=== PATIENT | female | born 1945 | race Hispanic/Latino ===

== ENCOUNTER 2018-06-22 11:30 | Inpatient (IN) | payer MEDICARE ==
[~2018-06-22] VITALS: Ht 147.3 cm; Wt 89.4 kg
--- OUTSIDE RECORDS SUMMARY | 2018-06-22 11:32 | XMS REPORT ---
Author Author 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 Allergies, Adverse Reactions, Alerts Allergy Name Allergy Type Status Severity Reaction(s) Onset Date Inactive Date Treating Clinician Comments No Known Allergies DA Active U 2015-05-16 00:00:00 Medications This patient has no known medications.
[2018-06-22 12:25] LABS: BASOPHILS # (AUTO) 0.1 (0.0-0.1); BASOPHILS % 0.9 % (0.0-1.0); EOSINOPHILS # (AUTO) 0.3 (0.0-0.4); EOSINOPHILS % 3.5 % (0.0-6.0); HEMATOCRIT 24.8 % (34.2-44.1); LYMPHOCYTES % 32.8 % (18.0-39.1); MEAN CORPUSCULAR HEMOGLOBIN 36.3 pg (28-32); MEAN CORPUSCULAR HGB CONC 32.7 g/dL (31-35); MEAN CORPUSCULAR VOLUME 111.2 fL (81-99); MONOCYTES # (AUTO) 0.9 (0.2-0.8); NEUTROPHILS # (AUTO) 4.8 (2.1-6.9); PLATELET COUNT 82 x10e3/uL (140-360); RED BLOOD COUNT 2.23 x10e6/uL (3.6-5.1); RED CELL DISTRIBUTION WIDTH 22.2 % (11.7-14.4)
[2018-06-22 12:26] LABS: INR 1.65; PROTHROMBIN TIME 20.9 seconds (11.9-14.5)
[2018-06-22 12:29] LABS: HEMOGLOBIN 8.1 g/dL (12.0-16.0)
[2018-06-22 12:35] LABS: ALANINE AMINOTRANSFERASE 25 IU/L (0-55); ALBUMIN 2.3 g/dL (3.5-5.0); ALBUMIN/GLOBULIN RATIO 0.5 (0.8-2.0); ALKALINE PHOSPHATASE 126 IU/L (40-150); ANION GAP 13.4 mmol/L (8-16); BLOOD UREA NITROGEN 8 mg/dL (7-26); BUN/CREATININE RATIO 12 (6-25); CALCIUM 8.3 mg/dL (8.4-10.2); CARBON DIOXIDE 24 mmol/L (22-29); CHLORIDE 99 mmol/L (98-107); CREATINE KINASE 124 IU/L (29-168); CREATININE, SERUM 0.65 mg/dL (0.57-1.11); EST GLOMERULAR FILTRATION RATE > 60 ML/MIN (60-); GLUCOSE 123 mg/dL (74-118); POTASSIUM 3.4 mmol/L (3.5-5.1); SODIUM 133 mmol/L (136-145)
--- NOTE | 2018-06-22 16:22 | NUR ---
PATIENT TRANSPORTED TO ER ROOM 9 VIA WHEELCHAIR, ASSUMED CARE AT THIS TIME. DISROBED AND GOWNED, CONNECTED TO BEDSIDE MONITOR. NO SIGNS OF ACUTE DISTRESS NOTED AT THIS TIME.
[2018-06-22] MEDS ORDERED: ASPIRIN 81 MG CHEW TAB PO ONE (17:30)
--- NOTE | 2018-06-22 18:45 | NUR ---
verbal report given to lavern perry.
--- NOTE | 2018-06-22 18:47 | Diagnostic Imaging Report ---
EXAMINATION: CHEST SINGLE (PORTABLE) COMPARISON: None INDICATION: Shortness of breath DISCUSSION: Frontal view of the chest obtained at 1814 hours. HEART AND MEDIASTINUM: The heart is enlarged. The aorta is ectatic with calcifications in the arch. LINES: None. LUNGS: Pulmonary vasculature is prominent. There are widespread alveolar airspace opacities in the lower lung zones. Pulmonary interstitium is mildly prominent. PLEURA: Moderate pleural effusions are suspected. No pneumothorax. BONES AND SOFT TISSUES: No focal osseous lesion. The soft tissues are normal. IMPRESSION: 1. Cardiomegaly and vascular congestion with interstitial edema. Bibasilar airspace opacities may represent atelectasis or infiltrate. 2. Moderate pleural effusions. Signed by: Dr. Megan Flowers MD on 06/22/2018 6:43 PM
--- NOTE | 2018-06-22 18:52 | Diagnostic Imaging Report ---
CT chest pulmonary embolism protocol CPT code: 07288 INDICATION: Shortness of breath, surgery 3 weeks ago TECHNIQUE: Thin collimation axial images obtained through the level of the pulmonary arteries with additional imaging through the chest following the uneventful administration of 100 cc of low osmolar, nonionic intravenous contrast. Images reconstructed into coronal and sagittal MIPs for complete evaluation of the tortuous and overlapping pulmonary vascular structures and to reduce patient radiation dose. RADIATION DOSE: Total DLP: 542.1 mGy*cm Estimated effective dose: (DLP x 0.015 x size factor) mSv CTDIvol has been reviewed. It is below the limits set by the Radiation Protocol Committee (RPC). COMPARISON: Chest x-ray obtained at the same time. FINDINGS: Pulmonary artery: No filling defects are appreciated within the main, left, right, lobar or visualized segmental pulmonary arteries to suggest embolism. The main pulmonary artery measures 3.1 cm in diameter. Aorta: The thoracic aorta is not aneurysmal. No evidence for dissection. Lymph nodes: No enlarged axillary or supraclavicular lymph nodes. No enlarged mediastinal lymph nodes. The hilar lymphoid tissue is prominent without measurable lymph nodes.. Thyroid: Normal in size without mass in the visualized parenchyma.. Mediastinum: The heart is enlarged. No pericardial effusion. There are calcifications of the mitral and aortic valves. Moderate burden of coronary artery atherosclerosis. There are calcifications throughout the tracheobronchial tree with mild tracheobronchomalacia. The esophagus is collapsed. Lungs: Right Lung: Diffuse interlobular septal thickening. There is subsegmental atelectasis in the lingula and near complete atelectasis of the lower lobe.. Left Lung: Diffuse interlobular septal thickening. There is subsegmental atelectasis of the upper lobe and lingula and near complete atelectasis of the lower lobe. Pleura: Posterior layering right pleural effusion measures 5.5 cm. Posterior layering left pleural effusion measures 3.5 cm. No enhancement of the visceral or parietal pleura. No pneumothorax. Abdomen: TIPS is partially imaged. Timing of the contrast bolus cannot assess shunt patency. There are visualization course along the course of the splenic artery. The liver is cirrhotic in morphology. No mass in the visualized portions of the upper abdomen. Bones: Degenerative changes of the spine. No compression deformities. No focal osseous lesions.. IMPRESSION: 1. No evidence of pulmonary embolus or aortic dissection. Enlarged pulmonary artery consistent with pulmonary artery hypertension. 2. Cardiomegaly and pulmonary vascular congestion with large pleural effusions and bilateral atelectasis. Mild tracheobronchomalacia suggestive of underlying small airways disease. 3. Cirrhosis with TIPS. Splenic artery embolization coils. Signed by: Dr. Megan Flowers MD on 06/22/2018 6:49 PM
[2018-06-22 19:01] LABS: EOSINOPHILS % (MANUAL) 3 % (0-7); HYPOCHROMASIA MODERATE; LYMPHOCYTES % (MANUAL) 24 % (19-48); MONOCYTES % (MANUAL) 16 % (3.4-9.0); NEUTROPHILS % (MANUAL) 51 % (40-74); PLATELET ESTIMATE MODERATELY DECREASED; PLATELET MORPHOLOGY COMMENT NORMAL; RBC MORPHOLOGY COMMENT NORMAL
[2018-06-22] MEDS ORDERED: IOPAMIDOL 370 MG/ML 200 ML INFUS..BTL INJ ONE (20:06)
[2018-06-22] MEDS ORDERED: SODIUM CHLORIDE 0.9% 50ML 50 ML ONE (20:06)
[2018-06-22 20:52] LABS: CREATINE KINASE MB 3.7 ng/mL (0-5.0)
[2018-06-22] MEDS ORDERED: LASIX20 MG PO (23:09)
[2018-06-22] MEDS ORDERED: ULTRAM 50MG50 MG PO (23:09)
[2018-06-22] MEDS ORDERED: LACTULOSE20 GM/30 M PO (23:09)
[2018-06-22] MEDS ORDERED: SPIRONOLACTONE25 MG PO (23:09)
[2018-06-22] MEDS ORDERED: ATORVASTATIN CA20 MG PO (23:09)
[2018-06-22] MEDS ORDERED: MUPIROCIN22 GM TOP (23:09)
[2018-06-22] MEDS ORDERED: ASPIRIN CHEW81 MG PO (23:09)
[2018-06-22] MEDS ORDERED: ROBITUSSIN-COU237 ML PO (23:11)
--- NOTE | 2018-06-22 23:30 | NUR ---
contact information for family lawson soriano (son) [phone] stephenevangelina miller (daughter) [phone]
[2018-06-23 05:17] LABS: CHOL/HDL RATIO 5.6 (3.0-3.6)
[2018-06-23 05:23] LABS: CREATINE KINASE MB 3.1 ng/mL (0-5.0)
[2018-06-23 09:25] LABS: BASOPHILS # (AUTO) 0.1 (0.0-0.1); BASOPHILS % 1.1 % (0.0-1.0); EOSINOPHILS # (AUTO) 0.4 (0.0-0.4); EOSINOPHILS % 4.1 % (0.0-6.0); HEMOGLOBIN 8.4 g/dL (12.0-16.0); LYMPHOCYTES # (AUTO) 2.9 (1.0-3.2); LYMPHOCYTES % 30.9 % (18.0-39.1); MEAN CORPUSCULAR HEMOGLOBIN 36.5 pg (28-32); MEAN CORPUSCULAR HGB CONC 32.3 g/dL (31-35); MONOCYTES # (AUTO) 0.9 (0.2-0.8); MONOCYTES % 9.4 % (4.4-11.3); NEUTROPHILS # (AUTO) 5.1 (2.1-6.9); PLATELET COUNT 84 x10e3/uL (140-360); RED CELL DISTRIBUTION WIDTH 22.8 % (11.7-14.4)
[2018-06-23] MEDS ORDERED: TRAMADOL HCL 50 MG TAB PO PRN (09:30)
[2018-06-23] MEDS ORDERED: GUAIFENESIN/DEXTROMETHORPHAN LIQD 5 ML UDC PO PRN (09:30)
[2018-06-23 10:23] LABS: % IRON SATURATION 45 % (15-50); IRON 79 ug/dL (50-170); TOTAL IRON BINDING CAPACITY 176 ug/dL (261-478); TRANSFERRIN 126 mg/dL (180-382)
--- NOTE | 2018-06-23 10:42 | History and Physical ---
PCP: Dr. Roselyn Ayers CHIEF COMPLAINT: Increasing shortness of breath, chest pain, pulmonary edema, and fluid overload. HISTORY: This is a very pleasant 73-year-old female recently admitted at [facility] on June 12, 2018. The patient apparently was [place] cruise ship. She had an emergency flight after she passed out and found that she had upper GI bleed with esophageal bleed profoundly with blood transfusion, and subsequently she was found have liver cirrhosis. Splenic artery embolization was done with a coiling, and then she had TIPS done. Found out that she had pulmonary hypertension and cardiomegaly with congestive heart failure. CT scan here showed that she had bilateral pleural effusion. The patient is admitted for further treatment. She is diagnosed with liver cirrhosis secondary to remote history of alcohol consumption. She is also an ex-smoker. PAST MEDICAL HISTORY: Recently in [facility] hospitalized from June 12, 2018, through June 17, 2018, for liver cirrhosis with upper GI bleed, status post esophageal varices banding with also 4 liver cirrhosis and TIPS procedures, necrotic navel removal, splenic artery embolization with coiling due to bleed. The patient was found have heart condition, questionable aortic stenosis, and she refused surgery as recommended at that time. She has chronic anemia and hypertension. PAST SURGICAL HISTORY: Including TIPS procedures, splenic artery embolization, esophageal varices banding, and abdominal hernia repair approximately 3 years ago. SOCIAL HISTORY: The patient quit alcohol years ago. She quit smoking also as well. She lives with her family with family support. ALLERGIES: NO KNOWN ALLERGIES. HOME MEDICATIONS: Aspirin, Lipitor, Lasix, lactulose, spironolactone, tramadol. REVIEW OF SYSTEMS: Increasing shortness of breath and generalized weakness. PHYSICAL EXAMINATION VITALS: Temperature is 98, blood pressure 110/54, pulse rate 88, respirations 22. GENERAL: The patient is not in acute distress. She is awake and alert laying in bed. HEENT: Normocephalic, atraumatic and anicteric. NECK: Supple grossly. PULMONARY: Bilateral coarses and rales at the bases with diminished breath sounds bilaterally. CARDIOVASCULAR: Regular rate and rhythm. ABDOMEN: Obese. Navel removal area with open wound. No sign of serious infection. Abdominal ascites. EXTREMITIES: One to 2+ edema. NEUROLOGIC: Moving all extremities. No focal deficit. LABORATORY: WBC is 9.1, hemoglobin 8.1, hematocrit 24.8 and platelets is 82,000. Sodium is 133, potassium 3.4, chloride 99, bicarb 24, BUN is 8, creatinine 0.6, glucose is 123. AST 67, ALT 25, albumin is 2.3. Coagulation: INR is 1.65. Imaging showing CT of the chest showed that she has some cardiomegaly and pulmonary vascular congestion with large pleural effusion and bilateral atelectasis. Cirrhosis with TIPS. Splenic artery embolization coiling. Liver cirrhosis. IMPRESSION 1. Congestive heart failure, [id number]-[id number], most likely diastolic dysfunction, but will check echocardiogram. 2. Bilateral pleural effusion. 3. Liver cirrhosis, advanced: Status post TIPS and esophageal varices banding approximately 2 weeks ago in [place]. 4. Morbid obesity. 5. Chronic anemia and low platelets. 6. Coagulopathy secondary to liver cirrhosis. PLAN: IV Lasix. Home medications. Hold off on aspirin for now. Echocardiogram. Consultation Dr. Erick Warren and Dr. Ayaan Castro, the patient's judicial registrar and Dr. Pool Wu, the patient's micrographics services supervisor. Obtain echocardiogram. Resume lactulose. PT and OT. Will follow up on the patient later today or tomorrow. Job#: [id number] SHERLYN
[2018-06-23] MEDS: PANTOPRAZOLE 40 MG 10ML VIAL IV SCH (11:01)
[2018-06-23] MEDS: SPIRONOLACTONE 25 MG TAB PO SCH (11:01)
[2018-06-23] MEDS: LACTULOSE SYRUP 20 GM/30 ML UDC PO SCH (11:01)
[2018-06-23] MEDS: FUROSEMIDE INJ 10 MG/ML 4 ML VIAL IV SCH ×2 (11:01→21:51)
--- NOTE | 2018-06-23 11:05 | NUR ---
rec'd report from linda sparks
--- NOTE | 2018-06-23 11:05 | NUR ---
Pt is in no distress. No complaints at this time. Family at the bedsidemeds given per orders. Pt is on the BSC. Will get a urine when finished. VSS. The patient is AA&Ox4, will monitor. Verbal report to Evan Mallory RN.
--- NOTE | 2018-06-23 14:45 | Consultation ---
DATE OF CONSULTATION: June 23, 2018 CARDIOLOGY CONSULTATION REASON FOR CONSULTATION: Volume overload, pleural effusion, and murmur. HISTORY OF PRESENT ILLNESS: Ms. Edna Gatse is a 73-year-old lady with past medical history of [id number]-[id number] aortic stenosis, who was under observation, very minimal coronary artery disease on last heart catheterization on February 2015 and severe alcoholic cirrhosis diagnosed many, many years ago who presented to [facility] on June 12, 2018 with hemorrhagic shock after having esophageal bleeding varices secondary to liver cirrhosis. She underwent emergent banding along with splenic artery embolization and an emergent TIPS procedure. According to the family, patient went in for her procedure at 7 in the morning, was then told that she had , somehow miracles so she came back, then had the procedure completed and finally left the procedure room around 11 o'clock at night. The patient was finally discharged on June 17, 2018 after a prolonged hospital course and receiving multiple units of blood. She reports that she was discharged on a statin therapy which was unclear why was given and in addition was started on lactulose therapy as well as Lasix and Aldactone therapy for volume management. She reports that at home she had been progressively increasingly short of breath and once she saw her PCP yesterday was noted to be hypoxic and hence coming into the hospital. At the present time, she denies any chest pain or discomfort. She reports new onset 2 to 3 pillow orthopnea, worsening lower extremity edema. I had a long discussion with the patient and family at bedside who does not seem to understand the advance nature of her liver condition. We had a very long visit today gone over all her overall medical condition. PAST MEDICAL HISTORY 1. Aortic stenosis, [id number] on last echocardiogram in 2016 with mean peak gradient of 33/59 mmHg. Claimed she was asymptomatic at that time and is under observation. 2. History of cardiac catheterization on February 2015, which showed only mild CAD. 3. Alcoholic cirrhosis, diagnosed many years ago with hospital course as noted above. 4. COPD, former heavy smoker. 5. DJD. PAST SURGICAL HISTORY 1. History of surgery x4. 2. History of abdominal hernia repair in 2007. 3. History of left knee arthroscopic procedure. 4. Prior history of esophageal banding and TIPS as noted above. FAMILY HISTORY: Mother at 78, had diabetes. Father at 82, had kidney stones. SOCIAL HISTORY: She denies any alcohol use, but used to drink heavily in the past. She reports remote history of smoking and denies any illicit drug use. ALLERGIES: NO KNOWN DRUG ALLERGIES. CURRENT MEDICATIONS: Patient was taking aspirin 81 mg daily, atorvastatin 40 mg q.h.s., lactulose b.i.d., spironolactone 50 mg daily, Lasix 40 mg p.o. daily. REVIEW OF SYSTEMS GENERAL: Positive for fatigue, malaise, weight gain. HEENT: No headaches, visual complains, sore throat, stuffy nose. RESPIRATORY: Denies any pleuritic chest pain. Has exertional dyspnea and orthopnea as noted above. CARDIOVASCULAR: As per HPI. GI: Denies any current vomiting. Does have intermittent nausea. Denies any bright red blood per rectum. HEMATOLOGY: Positive for easy bruising and bleeding. : Positive for hematuria according to the patient and increased urinary frequency. MUSCULOSKELETAL: Positive for back pain, knee pains, and leg swelling. SKIN: No rashes. NEUROLOGIC: Fair coordination and speech. No weakness. No history TIA or stroke. Remainder of review of system is negative otherwise as mentioned. PHYSICAL EXAMINATION VITAL SIGNS: Height of 5 feet 8 inches, weight of 228 pounds, BMI is 47.7, temperature of 98.9, pulse of 91, respiratory rate 19, blood pressure 97/57, O2 sat 100% on 2 liters nasal cannula. GENERAL: This is a well-nourished, well-developed lady, who is currently lying in bed, in no distress. HEENT: Normocephalic, atraumatic. Pupils are equal, round and reactive to light. Extraocular movements are intact. Oropharynx is clear. Sclerae appears jaundiced. NECK: Positive for JVD to the angle of mandible. CARDIOVASCULAR: Regular rate and rhythm. Normal S1 and S2. A 3 to 4/6 systolic ejection murmur at the right upper sternal border with radiation to the carotids. ABDOMEN: Soft, protuberant, distended. Normoactive bowel sounds. No hepatosplenomegaly. There is old surgical scars. BACK: No costovertebral angle tenderness. EXTREMITIES: Warm with 2+ edema to the mid shins. LUNGS: Show diminished bibasilar breast sounds prison of the lung alva and diminished air entry compatible with COPD type changes. NEUROLOGIC: Cranial nerves II through XII are intact. Strength is 5/5 and grossly nonfocal. PSYCHIATRIC: Normal fluent speech. Appropriate affect. No anxiety or delusion. LABORATORY DATA: White count of 9.45, hemoglobin 8.4, hematocrit 26.0, platelets of 84, MCV is 113. Sodium 133, potassium 3.4, chloride 99, bicarb 24, BUN 8, creatinine 0.65, glucose of 123. AST 67, ALT 25, alk phos 126, total bili 10.0, total protein 6.5, albumin of 2.3, total cholesterol 45, HDL of 8, LDL of 25, triglycerides of 59. Troponin went from 0.087 to 0.103 to 0.130. INR is 1.65. Chest x-ray showing vascular congestion and bilateral pleural effusions. moderate in size. CT of the chest shows large pleural effusions, cardiomegaly, vascular congestion, and cirrhosis with TIPS changes and splenic arterial embolization. EKG revealed sinus rhythm and non-specific ST-T wave changes. DIAGNOSES 1. Acute decompensated diastolic heart failure/high output heart failure secondary to transjugular intrahepatic portosystemic shunt procedure and also in the setting of rhnjoqgw-zw-cyjxjj aortic stenosis. 2. Large bilateral pleural effusions evident on exam with hypoxic respiratory failure. 3. Advance end-stage liver cirrhosis, status post transjugular intrahepatic portosystemic shunt, esophageal variceal banding now with bilirubin of 10, INR of 1.65, and albumin of 2.3 showing sings of advance poor hepatic synthetic function. 4. Thrombocytopenia, portal hypertension. 5. Anemia. 6. Hematuria. 7. Morbid obesity. 8. Chronic obstructive pulmonary disease, former smoker. 9. Mild coronary artery disease. PLANS/RECOMMENDATIONS: 1. From a cardiovascular standpoint, patient's decompensation and volume status and overall well-being is largely resultant for advanced liver cirrhosis and now is in a high output heart failure state secondary to her TIPS procedure performed 2 weeks ago. 2. We had a long discussion in terms of how advanced her situation is to her son with very high expected mortality in the short-term with the only real solution is again of the liver transplantation and suspect is not a good candidate for that. 3. We will check echocardiogram to evaluate the status of her aortic stenosis. 4. We will agree with IV diuretic therapy; however, patient is at very high risk for developing hepatorenal syndrome and [facility]. She is in a very delicate state. 5. Recommend strict I's and O's, daily weights. 6. Resume lactulose therapy. 7. Do not advise for any statin therapy and told the family to explosively discontinue this and we have never given her statin in light of her advanced liver cirrhosis. 8. Advised her not to take any antiplatelet therapy in light of her bleeding and diaphysis ever again and stopped her aspirin. 9. We will continue to follow this patient with you. Thank you for this referral. Job#: [id number] BESSIE
[2018-06-23] MEDS: MUPIROCIN 2% OINT 22 GM TUBE TOP SCH ×2 (15:00→21:00)
[2018-06-23 15:05] VITALS: BP 113/66
[2018-06-23 15:30] VITALS: BP 113/66
[2018-06-23] MEDS ORDERED: PHYTONADIONE 10 MG/ML AMP SQ NR (16:45)
--- NOTE | 2018-06-23 17:01 | Consultation ---
DATE OF CONSULTATION: PULMONARY CONSULTATION Patient of Dr. Ayers, Dr. Castro, Dr. Howard. A charming but unfortunate 73-year-old woman with a history of recent TIPS placement for upper GI bleeding at [facility] at [place]. She was admitted from Dr. Ayers's office with progressive shortness of breath and anasarca. She has a history of cirrhosis, which she relates to alcohol in the past. History of smoking in the past. History of splenic artery embolization recently. She has had episodes of PND since her TIPS was placed. ALLERGIES: SHE HAS NO KNOWN ALLERGIES. MEDICATIONS: Include aspirin, Lipitor, Lasix, lactulose, Aldactone, and tramadol. She worked in [employer]. Born in [place], [place]. Grew up in [place]. Had 3 hernia repairs. FAMILY HISTORY: Noncontributory. PHYSICAL EXAMINATION GENERAL: She is a well-developed white female in no acute distress. Looking her stated age. VITALS: Temperature 96.8, pulse 95, respirations 18, blood pressure 113/66. HEENT: Head is normocephalic and atraumatic. Eyes: Extraocular movements intact. LUNGS: Diminished breath sounds in both bases. ABDOMEN: Obese. Has ascites. EXTREMITIES: Edematous. IMPRESSION 1. Cirrhosis with ascites. 2. Congestive heart failure with chronic systolic ejection murmur, which she says she has had from her youth. PLAN: Diuresis. Attempt to avoid hepatorenal syndrome. Consider thoracentesis. Also, add vitamin K to the regimen. Thank you for this kind referral. Job#: [id number] SHERLYN
[2018-06-23 20:00] VITALS: BP 110/56
[2018-06-24] VITALS: BP 109/55
--- NOTE | 2018-06-24 01:30 | Consultation ---
DATE OF CONSULTATION: June 24, 2018 GI CONSULT NOTE CONSULTING PHYSICIAN: Dr. He Howard REASON FOR CONSULT: 1. BARRIGA, liver cirrhosis. 2. Portal hypertensive gastropathy. 3. Esophageal varices, status post TIPS. HISTORY OF PRESENTING ILLNESS: Ahdqceq-las-ahrv-old female who is a patient of my associate, Dr. Castro. She has BARRIGA liver cirrhosis. She was recently admitted in [facility] earlier this month with GI bleeding. She received multiple units of packed red blood cell transfusion. She had splenic artery embolization. She also ended up getting TIPS. Apparently, patient was doing okay until she came to the emergency room yesterday with acute shortness of breath, found to have pulmonary edema, and worsening of congestive heart failure. She was also noted to have bilateral pleural effusions. She is being managed by cardiology service. GI is being consulted to assist in management of decompensated BARRIGA, liver cirrhosis. REVIEW OF SYSTEMS: Twelve-point system reviewed, symptomatology is limited as per HPI. PAST MEDICAL HISTORY: BARRIGA liver cirrhosis, obesity. PAST SURGICAL HISTORY: TIPS procedure, EGD with esophageal variceal banding, abdominal hernia repair. FAMILY HISTORY: Noncontributory. SOCIAL HISTORY: Used to drink when she was young, but did not drink any alcohol in last 20 to 30 years. Seldom drinks. Former smoker. Never used any illicit drugs. ALLERGIES: NO KNOWN DRUG ALLERGIES. HOME MEDICATIONS: Aspirin, Lipitor, Lasix, lactulose, spironolactone, and tramadol. PHYSICAL EXAMINATION: VITAL SIGNS: Temperature 97, pulse 93, respiration 20, blood pressure 110/56, oxygen saturation 96% on 3 liters of nasal cannula. GENERAL: Obese body habitus, not in any acute distress, mentating well. HEENT: Oral mucosa is moist. Anicteric sclerae. CVS: S1 and S2 regular. LUNGS: Bilaterally grossly clear with decreased breath sounds at both bases. ABDOMEN: Obese, soft, nondistended. No shifting dullness. Nontender. No palpable mass or hernia. Positive bowel sounds. EXTREMITIES: Warm. No leg edema. LABS: WBC 9.45, hemoglobin 8.4, hematocrit 26, platelet count 84,000. Sodium 133, potassium 3.4, chloride 99, bicarb 24, BUN 8, creatinine 0.65. Liver enzymes showed a total bilirubin 10, AST 67, ALT 25, alkaline phosphatase 126. CT of the chest showed: 1. No evidence of pulmonary embolus or any aortic dissection. Enlarged pulmonary artery consistent with pulmonary arterial hypertension. 2. Cardiomegaly and pulmonary vascular congestion with large pleural effusion and bilateral atelectasis. Mild tracheobronchomalacia suggestive of underlying small airway disease. 3. Cirrhosis with TIPS. Splenic artery embolization coil. Chest x-ray showed: 1. Cardiomegaly and vascular congestion with interstitial edema. Bibasilar airspace opacities may represent atelectasis or infiltrate. 2. Moderate pleural effusion. IMPRESSION: Decompensated nonalcoholic steatohepatitis, liver cirrhosis, status post transjugular intrahepatic portosystemic shunt. From cirrhosis standpoint, continue to maintain patient on low-salt diet. Lactulose to ensure 1 or 2 bowel movement daily. Patient is definitely at the risk of hepatic encephalopathy due to presence of transjugular intrahepatic portosystemic shunt. Outpatient management of liver cirrhosis once patient is discharged from the hospital. I thank Dr. Howard for allowing me to participate in the care of this patient. Job#: [id number] DR ENAMORADO
[2018-06-24 04:00] VITALS: BP 106/51
[2018-06-24 05:20] LABS: BASOPHILS # (AUTO) 0.1 (0.0-0.1); BASOPHILS % 1.1 % (0.0-1.0); EOSINOPHILS # (AUTO) 0.3 (0.0-0.4); EOSINOPHILS % 3.9 % (0.0-6.0); HEMOGLOBIN 7.7 g/dL (12.0-16.0); LYMPHOCYTES # (AUTO) 2.9 (1.0-3.2); LYMPHOCYTES % 35.5 % (18.0-39.1); MEAN CORPUSCULAR HEMOGLOBIN 35.8 pg (28-32); MEAN CORPUSCULAR HGB CONC 32.1 g/dL (31-35); MEAN CORPUSCULAR VOLUME 111.6 fL (81-99); MONOCYTES # (AUTO) 0.9 (0.2-0.8); MONOCYTES % 10.8 % (4.4-11.3); NEUTROPHILS % 48.5 % (38.7-80.0); PLATELET COUNT 75 x10e3/uL (140-360); RED BLOOD COUNT 2.15 x10e6/uL (3.6-5.1); RED CELL DISTRIBUTION WIDTH 22.4 % (11.7-14.4)
[2018-06-24 05:30] LABS: INR 1.62; PROTHROMBIN TIME 20.6 seconds (11.9-14.5)
[2018-06-24 05:44] LABS: ALANINE AMINOTRANSFERASE 22 IU/L (0-55); ALBUMIN 2.1 g/dL (3.5-5.0); ALBUMIN/GLOBULIN RATIO 0.5 (0.8-2.0); ALKALINE PHOSPHATASE 125 IU/L (40-150); ANION GAP 9.4 mmol/L (8-16); BLOOD UREA NITROGEN 6 mg/dL (7-26); BUN/CREATININE RATIO 9 (6-25); CARBON DIOXIDE 30 mmol/L (22-29); CHLORIDE 99 mmol/L (98-107); CREATININE, SERUM 0.69 mg/dL (0.57-1.11); EST GLOMERULAR FILTRATION RATE > 60 ML/MIN (60-); GLUCOSE 81 mg/dL (74-118); MAGNESIUM 1.4 MG/DL (1.3-2.1); POTASSIUM 3.4 mmol/L (3.5-5.1); SODIUM 135 mmol/L (136-145)
[2018-06-24 06:06] LABS: THYROID STIMULATING HORMONE 1.634 uIU/mL (0.350-4.940)
[2018-06-24 06:10] LABS: FOLATE 6.5 ng/mL (7.0-15.4)
[2018-06-24 08:00] VITALS: BP 115/57
[2018-06-24 09:12] LABS: HYPOCHROMASIA MODERATE; PLATELET ESTIMATE MODERATELY DECREASED; PLATELET MORPHOLOGY COMMENT FEW LARGE; POIKILOCYTOSIS SLIG; POLYCHROMASIA FEW; RBC MORPHOLOGY COMMENT NORMAL
[2018-06-24] MEDS: PANTOPRAZOLE 40 MG 10ML VIAL IV SCH (09:47)
[2018-06-24 09:50] VITALS: BP 115/57
[2018-06-24] MEDS: POTASSIUM CHLORIDE 20 MEQ TAB CR PO PRN ×2 (09:50→10:20)
[2018-06-24] MEDS ORDERED: FOLIC ACID 1 MG TAB PO ONE (11:00)
--- NOTE | 2018-06-24 11:50 | NUR ---
patient back from thoracentesis , incision site dressing is intact, no bleeding or drainage noted, denies any pain.
--- NOTE | 2018-06-24 12:11 | Diagnostic Imaging Report ---
PROCEDURE: ULTRASOUND GUIDED THORACENTESIS COMPARISON: [facility], DX, CHEST SINGLE (PORTABLE), 06/22/2018, 18:14. INDICATIONS:PLEURAL EFFUSION FINDINGS: After informed consent was obtained, the patient was placed in the sitting position and preliminary ultrasound of the posterior chest identified a safe route into the right pleural effusion. The overlying skin was prepped and draped in usual sterile fashion. Lidocaine 1% was used for local anesthesia. Under ultrasound guidance, a 5 Guatemalan centesis needle was advanced into the pleural fluid and 650 cc of krishan colored effusion were aspirated. The patient tolerated the procedure well and there were no immediate post-procedural complications. A post-thoracentesis chest radiograph will be obtained. Specimen was sent to the laboratory for analysis. CONCLUSION: Uncomplicated ultrasound-guided right thoracentesis with removal of 650 cc of fluid. Javier Gomez D.O. Dictated by: Javier Gomez D.O. on 06/24/2018 at 12:22 Electronically approved by: Javier Gomez D.O. on 06/24/2018 at 12:22
--- NOTE | 2018-06-24 12:44 | Diagnostic Imaging Report ---
Chest, single view portable dated 06/24/2018 at 12:10 PM History: Status post right thoracentesis Comparison: 06/22/2018 chest x-ray.. Discussion: The cardiomediastinal silhouette is enlarged. Improvement in the right pleural effusion with improved aeration in the base but persistent atelectasis. No pneumothorax is identified. Small-moderate left pleural effusion persists. The soft tissues and osseous structures are intact. IMPRESSION: 1. Improved aeration involving the right lung base; status post right thoracentesis. 2. No evidence of a pneumothorax. 3. Left pleural effusion persists. Signed by: Dr. Javier Gomez DO on 06/24/2018 12:40 PM
[2018-06-24 13:00] LABS: BODY FLUID APPEARANCE SL.CLOUDY; BODY FLUID COLOR YELLOW; BODY FLUID TYPE PLEURAL
[2018-06-24] MEDS: MUPIROCIN 2% OINT 22 GM TUBE TOP SCH ×3 (13:11→20:50)
[2018-06-24] MEDS: LACTULOSE SYRUP 20 GM/30 ML UDC PO SCH (13:12)
[2018-06-24] MEDS: FUROSEMIDE INJ 10 MG/ML 4 ML VIAL IV SCH ×2 (13:12→20:50)
[2018-06-24] MEDS: SPIRONOLACTONE 25 MG TAB PO SCH (13:12)
[2018-06-24 13:35] LABS: RBC,BODY FLUID 8353 cells/uL; WBC,BODY FLUID 62 cells/uL
[2018-06-24 14:45] LABS: BASOPHILS # (AUTO) 0.1 (0.0-0.1); EOSINOPHILS # (AUTO) 0.3 (0.0-0.4); EOSINOPHILS % 3.3 % (0.0-6.0); HEMATOCRIT 27.9 % (34.2-44.1); LYMPHOCYTES # (AUTO) 2.7 (1.0-3.2); LYMPHOCYTES % 32.1 % (18.0-39.1); MEAN CORPUSCULAR HEMOGLOBIN 36.7 pg (28-32); MEAN CORPUSCULAR HGB CONC 32.3 g/dL (31-35); MEAN CORPUSCULAR VOLUME 113.9 fL (81-99); MONOCYTES # (AUTO) 0.9 (0.2-0.8); MONOCYTES % 10.5 % (4.4-11.3); NEUTROPHILS # (AUTO) 4.4 (2.1-6.9); NEUTROPHILS % 52.7 % (38.7-80.0); RED BLOOD COUNT 2.45 x10e6/uL (3.6-5.1); RED CELL DISTRIBUTION WIDTH 22.6 % (11.7-14.4)
[2018-06-24 14:47] LABS: PLATELET COUNT 79 x10e3/uL (140-360)
--- NOTE | 2018-06-24 15:04 | Progress Note ---
DATE: June 24, 2018 GASTROENTEROLOGY PROGRESS NOTE SUBJECTIVE: Patient reports no abdominal pain. She is eating and drinking fine. No bowel movement today. She has had a thoracentesis today. REVIEW OF SYSTEMS GENERAL: No fever or chills. RESPIRATORY: No cough or expectoration. CVS: No chest pain or palpitation. MEDICATIONS 1. Lasix 40 mg IV twice daily. 2. Spironolactone 50 mg p.o. daily. 3. Lactulose 20 g p.o. daily. 4. Mupirocin 22 g t.i.d. 5. Potassium chloride 20 mEq daily as needed. 6. Pantoprazole 40 mg IV daily. 7. Folic acid 1 mg daily. 8. Albuterol inhaler. 9. Tramadol. 10. Robitussin cough syrup. PHYSICAL EXAMINATION VITAL SIGNS: Temperature 97.9, pulse 91/94, respiration 18, blood pressure 115/57, oxygen saturation 95% on 3 L of nasal cannula. GENERAL: Not in any acute distress. Oral mucosa is moist. Obese body habitus. HEENT: Slightly icteric sclerae. ABDOMEN: Soft, obese, nondistended, and nontender. No palpable mass or hernia. No shifting dullness. No digitally appreciable shifting dullness. LABS: BUN 6, creatinine 0.69. Liver enzymes showed total bilirubin has come down to 7.6 from 10 yesterday. AST 59, ALT 22, alkaline phosphatase 125. WBC 8.23, hemoglobin 7.7, hematocrit 24, and platelet count 75,000. IMPRESSION 1. Decompensated nonalcoholic steatohepatitis liver cirrhosis, status post TIPS for esophageal varices. 2. Portal hypertension and portal hypertensive gastropathy. 3. Decompensated congestive heart failure and bilateral pleural effusion. PLAN: Continue lactulose to ensure 1 or 2 bowel movements daily. Patient has had TIPS. Therefore, she is at risk of getting portosystemic encephalopathy. Continue diuretics. Monitor electrolytes. Liver enzymes elevated secondary to underlying liver cirrhosis, total bilirubin is trending down. Job#: [id number]
[2018-06-24 16:00] VITALS: BP 97/54
--- NOTE | 2018-06-24 17:55 | NUR ---
patient stated , when she blow nose blood tinged mucus coming out, on assessment no active bleeding noted, will keep monitor for any other bleeding, patient had moderate BM
[2018-06-24 20:37] VITALS: BP 96/49
[2018-06-25] VITALS (9 sets, daily range): BP systolic 95–153; BP diastolic 45–63
[2018-06-25 06:54] LABS: BASOPHILS # (AUTO) 0.1 (0.0-0.1); BASOPHILS % 0.9 % (0.0-1.0); EOSINOPHILS # (AUTO) 0.3 (0.0-0.4); EOSINOPHILS % 3.8 % (0.0-6.0); HEMATOCRIT 24.8 % (34.2-44.1); LYMPHOCYTES # (AUTO) 3.4 (1.0-3.2); MEAN CORPUSCULAR HGB CONC 32.3 g/dL (31-35); MEAN CORPUSCULAR VOLUME 111.7 fL (81-99); MONOCYTES # (AUTO) 0.9 (0.2-0.8); MONOCYTES % 9.8 % (4.4-11.3); NEUTROPHILS % 46.3 % (38.7-80.0); PLATELET COUNT 81 x10e3/uL (140-360); RED BLOOD COUNT 2.22 x10e6/uL (3.6-5.1)
[2018-06-25 07:11] LABS: ANION GAP 13.4 mmol/L (8-16); BLOOD UREA NITROGEN 8 mg/dL (7-26); BUN/CREATININE RATIO 11 (6-25); CALCIUM 8.3 mg/dL (8.4-10.2); CARBON DIOXIDE 27 mmol/L (22-29); CHLORIDE 99 mmol/L (98-107); EST GLOMERULAR FILTRATION RATE > 60 ML/MIN (60-); GLUCOSE 78 mg/dL (74-118); POTASSIUM 3.4 mmol/L (3.5-5.1); SODIUM 136 mmol/L (136-145)
[2018-06-25 07:17] LABS: ANISOCYTOSIS SLIGHT; PLATELET ESTIMATE ADEQUATE; PLATELET MORPHOLOGY COMMENT NORMAL
--- NOTE | 2018-06-25 07:33 | NUR ---
PATIENT RESTING IN BED, NOT IN ANY DISTRESS, CALL LIGHT IN REACH, FAMILY AT BED SIDE
[2018-06-25] MEDS: FUROSEMIDE INJ 10 MG/ML 4 ML VIAL IV SCH ×2 (08:52→21:48)
[2018-06-25] MEDS: PANTOPRAZOLE 40 MG 10ML VIAL IV SCH (08:52)
[2018-06-25] MEDS: LACTULOSE SYRUP 20 GM/30 ML UDC PO SCH (08:52)
[2018-06-25] MEDS: SPIRONOLACTONE 25 MG TAB PO SCH (08:52)
[2018-06-25] MEDS: FOLIC ACID 1 MG TAB PO SCH (08:52)
[2018-06-25] MEDS: MUPIROCIN 2% OINT 22 GM TUBE TOP SCH ×3 (08:52→22:24)
[2018-06-25] MEDS ORDERED: PHYTONADIONE 10 MG/ML AMP SQ ONE (12:00)
[2018-06-25] MEDS ORDERED: FUROSEMIDE INJ 10 MG/ML 2 ML VIAL IV SCH (12:00)
[2018-06-25] MEDS ORDERED: SODIUM CHLORIDE 0.9% 250ML 250 ML IV ONE (12:00)
[2018-06-25] MEDS ORDERED: PHYTONADIONE 10MG/ML 10 MG in SODIUM CHLORIDE 0.9% 50ML 50 ML IV ONE (13:00)
--- NOTE | 2018-06-25 17:53 | NUR ---
patient in bed, denies any pain, no distress noted, Delay in Blood which is notified by lab Dr Howard aware about it, family at bed side
--- NOTE | 2018-06-25 19:20 | NUR ---
Received patient asleep, no distress noted, family members at the bedside. Call light within easy reached, advised to call for assistance when needed. Will continue to monitor
--- NOTE | 2018-06-25 19:30 | NUR ---
received call from lab to draw blood for further testing, patient has positive antibodies, with orders to transfuse 2 units PRBC, consent signed
--- NOTE | 2018-06-25 20:00 | NUR ---
Blood sent to lab, patient had previous transfusion this month June [place] per family member, Narcisa from Lab informed
--- NOTE | 2018-06-25 20:18 | Progress Note ---
DATE: June 25, 2018 SUBJECTIVE: Patient reports no abdominal pain. She has had several loose stools since yesterday. REVIEW OF SYSTEMS GENERAL: No fever or chills. RESPIRATORY: No cough or expectoration. CVS: No chest pain or palpitations. MEDICATIONS: Mupirocin, folic acid, furosemide, spironolactone, potassium chloride, lactulose 20 g daily, furosemide 40 mg IV q.12 hours, pantoprazole 40 mg daily, albuterol inhaler, tramadol. PHYSICAL EXAMINATION VITAL SIGNS: Temperature 98.1, pulse 86, respirations 20, blood pressure 104/53 to 153/61, oxygen saturation 97% on 3 liters of nasal cannula. GENERAL: Not in any acute distress, obese body habitus. HEENT: Oral mucosa is moist. ABDOMEN: Obese. No digitally appreciable shifting dullness, nontender. No palpable mass or hernia. Positive bowel sounds. LABS: WBC 8.71, hemoglobin 8, hematocrit 24.8, platelet count 81. Sodium 136, potassium 3.4, chloride 99, bicarbonate 27, BUN 8, creatinine 0.70, glucose 78. IMPRESSION 1. Decompensated nonalcoholic steatohepatitis liver cirrhosis with portal hypertension. 2. Esophageal varices. 3. History of upper gastrointestinal bleed, status post transjugular intrahepatic portosystemic shunt. PLAN: Continue present medical management. Titrate the dose of lactulose for 1 or 2 bowel movement daily. Hold the lactulose if there is a diarrhea. Patient needs stringent outpatient management of [place] liver cirrhosis. Job#: [id number] RTY
[2018-06-26] VITALS (7 sets, daily range): BP systolic 105–121; BP diastolic 51–60
--- NOTE | 2018-06-26 05:56 | NUR ---
Called lab to ff-up, no update yet at this time
[2018-06-26 06:46] LABS: BASOPHILS # (AUTO) 0.1 (0.0-0.1); BASOPHILS % 1.1 % (0.0-1.0); EOSINOPHILS # (AUTO) 0.4 (0.0-0.4); HEMATOCRIT 30.6 % (34.2-44.1); HEMOGLOBIN 9.7 g/dL (12.0-16.0); LYMPHOCYTES # (AUTO) 3.5 (1.0-3.2); LYMPHOCYTES % 39.3 % (18.0-39.1); MEAN CORPUSCULAR HEMOGLOBIN 35.5 pg (28-32); MEAN CORPUSCULAR HGB CONC 31.7 g/dL (31-35); MEAN CORPUSCULAR VOLUME 112.1 fL (81-99); MONOCYTES # (AUTO) 0.7 (0.2-0.8); NEUTROPHILS # (AUTO) 4.2 (2.1-6.9); NEUTROPHILS % 47.2 % (38.7-80.0); PLATELET COUNT 84 x10e3/uL (140-360); RED BLOOD COUNT 2.73 x10e6/uL (3.6-5.1); RED CELL DISTRIBUTION WIDTH 21.4 % (11.7-14.4)
--- NOTE | 2018-06-26 07:00 | NUR ---
RCD PT AT BED PT IS ALERT AND ORIENTED ASSESSMENT DONE PT RESTING ON BED IV PATENT FAMILY AT BED SIDE BED LOW BED LOW AND LOCKED CALL LIGHT IN REACH
[2018-06-26 07:10] LABS: ANION GAP 14.3 mmol/L (8-16); BLOOD UREA NITROGEN 8 mg/dL (7-26); BUN/CREATININE RATIO 12 (6-25); CALCIUM 8.4 mg/dL (8.4-10.2); CARBON DIOXIDE 26 mmol/L (22-29); CHLORIDE 100 mmol/L (98-107); CREATININE, SERUM 0.68 mg/dL (0.57-1.11); EST GLOMERULAR FILTRATION RATE > 60 ML/MIN (60-); GLUCOSE 79 mg/dL (74-118); POTASSIUM 3.3 mmol/L (3.5-5.1); SODIUM 137 mmol/L (136-145)
[2018-06-26] MEDS: PANTOPRAZOLE SOD 40 MG TABEC PO SCH (07:30)
[2018-06-26] MEDS: FUROSEMIDE INJ 10 MG/ML 4 ML VIAL IV SCH ×2 (09:00→21:50)
[2018-06-26] MEDS: MUPIROCIN 2% OINT 22 GM TUBE TOP SCH ×3 (09:00→21:50)
[2018-06-26] MEDS: FOLIC ACID 1 MG TAB PO SCH (09:00)
[2018-06-26] MEDS: LACTULOSE SYRUP 20 GM/30 ML UDC PO SCH (09:00)
[2018-06-26] MEDS: SPIRONOLACTONE 25 MG TAB PO SCH (09:00)
[2018-06-26] MEDS: POTASSIUM CHLORIDE 20 MEQ TAB CR PO PRN (09:05)
[2018-06-26] MEDS ORDERED: SODIUM CHLORIDE 0.9% 250ML 250 ML ONE (11:52)
[2018-06-26] MEDS: POTASSIUM CHLORIDE 10MEQ EA PO ONE ×2 (12:30→13:08)
[2018-06-26] MEDS ORDERED: POTASSIUM CHLORIDE 10MEQ EA PO ONE (13:30)
--- NOTE | 2018-06-26 15:08 | NUR ---
BLOOD TRANSFUSION COMPLETED VITALS CHECKED PT RESTING ON BED FAMILY AT BED SIDE
[2018-06-26] MEDS: FUROSEMIDE INJ 10 MG/ML 2 ML VIAL IV SCH (15:09)
--- NOTE | 2018-06-26 18:43 | NUR ---
PT RESTING ON BED BED SIDE REPORT GIVEN TO ONCOMING NURSE
--- NOTE | 2018-06-26 19:20 | NUR ---
Bedside rounds with morning nurse completed. Pt lying in bed HOB 30 degrees, with eyes closed. No acute distress noted. Family at bedside. Call thorne within reach.
[2018-06-26] MEDS: ALBUTEROL/IPRATROPIUM 3 ML NEB NEB SCH (20:45)
--- NOTE | 2018-06-26 23:37 | Progress Note ---
DATE: June 26, 2018 GI PROGRESS REPORT SUBJECTIVE: Patient reports no abdominal pain, tolerating oral feeds very well. Still having loose stools. REVIEW OF SYSTEMS GENERAL: No fever or chills. RESPIRATORY: No cough or expectoration. CVS: No chest pain or palpitation. MEDICATIONS: Reviewed as per MAR. Patient is on lactulose 20 g daily along with other medications. PHYSICAL EXAMINATION VITAL SIGNS: Temperature 99.5, pulse 90, respirations 18, blood pressure 121/58, and oxygen saturation 94% on 3 L of nasal cannula. GENERAL: Not in any acute distress. Oral mucosa is moist. ABDOMEN: Soft, nondistended, and nontender. Obese. No digitally appreciable shifting dullness. Bowel sounds present. LABS: WBC 8.93, hemoglobin 9.7, hematocrit 30.6, MCV 112.1, and platelet count 84,000. Sodium 137, potassium 3.3, chloride 100, bicarbonate 26, BUN 8, and creatinine 0.68. Chest x-ray 1. Improved aeration involving the right lung base, status post right thoracentesis. 2. No evidence of pneumothorax. 3. Left pleural effusion persists. IMPRESSIONS 1. Decompensated nonalcoholic steatohepatitis liver cirrhosis with portal hypertension. 2. Esophageal varices, history of gastrointestinal bleeding, status post transjugular intrahepatic portosystemic shunt. PLAN: Continue present medical management. Titrate the dose of lactulose for 1 or 2 bowel movements daily. Hold lactulose if there is diarrhea. Patient needs stringent outpatient management of [place] liver cirrhosis. Job#: [id number]
[2018-06-27] VITALS (8 sets, daily range): BP systolic 96–136; BP diastolic 43–62
[2018-06-27] MEDS: ALBUTEROL/IPRATROPIUM 3 ML NEB NEB SCH ×4 (03:30→19:33)
[2018-06-27 05:17] LABS: BASOPHILS # (AUTO) 0.1 (0.0-0.1); BASOPHILS % 1.1 % (0.0-1.0); EOSINOPHILS # (AUTO) 0.5 (0.0-0.4); HEMATOCRIT 28.5 % (34.2-44.1); HEMOGLOBIN 9.5 g/dL (12.0-16.0); LYMPHOCYTES # (AUTO) 2.6 (1.0-3.2); LYMPHOCYTES % 27.9 % (18.0-39.1); MEAN CORPUSCULAR HEMOGLOBIN 35.4 pg (28-32); MEAN CORPUSCULAR HGB CONC 33.3 g/dL (31-35); MEAN CORPUSCULAR VOLUME 106.3 fL (81-99); MONOCYTES # (AUTO) 1.1 (0.2-0.8); MONOCYTES % 11.9 % (4.4-11.3); NEUTROPHILS # (AUTO) 4.9 (2.1-6.9); NEUTROPHILS % 53.8 % (38.7-80.0); PLATELET COUNT 69 x10e3/uL (140-360); RED BLOOD COUNT 2.68 x10e6/uL (3.6-5.1); RED CELL DISTRIBUTION WIDTH 22.2 % (11.7-14.4)
[2018-06-27 05:32] LABS: INR 1.63; PARTIAL THROMBOPLASTIN TIME 40.5 seconds (23.8-35.5); PROTHROMBIN TIME 20.7 seconds (11.9-14.5)
[2018-06-27 06:46] LABS: ANION GAP 13.5 mmol/L (8-16); BLOOD UREA NITROGEN 11 mg/dL (7-26); BUN/CREATININE RATIO 16 (6-25); CALCIUM 8.4 mg/dL (8.4-10.2); CARBON DIOXIDE 24 mmol/L (22-29); CHLORIDE 98 mmol/L (98-107); CREATININE, SERUM 0.68 mg/dL (0.57-1.11); EST GLOMERULAR FILTRATION RATE > 60 ML/MIN (60-); GLUCOSE 79 mg/dL (74-118); POTASSIUM 3.5 mmol/L (3.5-5.1); SODIUM 132 mmol/L (136-145)
[2018-06-27] MEDS: FUROSEMIDE INJ 10 MG/ML 4 ML VIAL IV SCH ×2 (08:08→22:30)
[2018-06-27] MEDS: SPIRONOLACTONE 25 MG TAB PO SCH (08:08)
[2018-06-27] MEDS: LACTULOSE SYRUP 20 GM/30 ML UDC PO SCH (08:08)
[2018-06-27] MEDS: MUPIROCIN 2% OINT 22 GM TUBE TOP SCH ×3 (08:08→22:30)
[2018-06-27] MEDS: FOLIC ACID 1 MG TAB PO SCH (08:08)
[2018-06-27] MEDS: PANTOPRAZOLE SOD 40 MG TABEC PO SCH (08:08)
[2018-06-27 08:48] LABS: RBC MORPHOLOGY COMMENT ABNORMAL
[2018-06-27 08:49] LABS: ANISOCYTOSIS MODERATE; HYPOCHROMASIA MODERATE; PLATELET ESTIMATE MODERATELY DECREASED; PLATELET MORPHOLOGY COMMENT FEW LARGE
--- NOTE | 2018-06-27 14:15 | NUR ---
Spoke to CHERYL Gomez regarding home o2 set up. Home o2 eval has not been completed. Order in place for home o2 eval to be done.
--- NOTE | 2018-06-27 17:13 | NUR ---
per ,Dami taylor d/c telemetry
--- NOTE | 2018-06-27 17:44 | Progress Note ---
DATE: June 27, 2018 SUBJECTIVE: Patient reports no abdominal pain. Tolerating oral feeds. No more diarrhea. REVIEW OF SYSTEMS GENERAL: No fever or chills. RESPIRATORY: No cough or expectoration. CVS: No chest pain or palpitation. MEDICATIONS: Reviewed as per SEP. PHYSICAL EXAMINATION VITAL SIGNS: Temperature 98.7, pulse 94, respirations 19, blood pressure 136/62, oxygen saturation 95% on room air. GENERAL: Not in any acute distress, obese body habitus. HEENT: Oral mucosa is moist. ABDOMEN: Soft, abdominal obesity, nondistended, nontender. No palpable mass or hernia. Positive bowel sounds. LABS: WBC 9.15, hemoglobin 9.5, hematocrit 28.5, MCV 106.3, platelet count 69. Sodium 132, potassium 3.5, chloride 98, bicarb 24, BUN 11, creatinine 0.68. PT 20.7, INR 1.63. ASSESSMENT 1. Decompensated nonalcoholic steatohepatitis liver cirrhosis with portal hypertension. 2. Esophageal varices, history of gastrointestinal bleeding, status post transjugular intrahepatic portosystemic shunt. PLAN: Continue present medical management. Titrate dose of lactulose to ensure 1 or 2 bowel movements daily. Consider adding Xifaxan twice daily. Patient can be discharged from GI standpoint to follow with Dr. Castro within 1 to 2 weeks. She needs stringent outpatient management of liver cirrhosis. Job#: [id number] KRIS
--- NOTE | 2018-06-27 19:15 | NUR ---
Received patient awake on bed, no complaints of pain at this time, no active bleeding noted. Call light within reached, advised to call for assistance when needed. Will continue to monitor
[2018-06-28] VITALS (8 sets, daily range): BP systolic 100–128; BP diastolic 44–60
--- NOTE | 2018-06-28 01:02 | NUR ---
RT Juan Alberto informed of Home O2 eval, will ff-up
[2018-06-28] MEDS: ALBUTEROL/IPRATROPIUM 3 ML NEB NEB SCH ×4 (01:20→19:32)
--- NOTE | 2018-06-28 07:00 | NUR ---
SHIFT REPORT RECEIVED FROM NIGHT RN. PT DENIES NEEDS AT THIS TIME.
[2018-06-28] MEDS: PANTOPRAZOLE SOD 40 MG TABEC PO SCH (08:11)
[2018-06-28] MEDS: MUPIROCIN 2% OINT 22 GM TUBE TOP SCH ×3 (08:11→21:04)
[2018-06-28] MEDS: FOLIC ACID 1 MG TAB PO SCH (08:11)
[2018-06-28] MEDS: FUROSEMIDE INJ 10 MG/ML 4 ML VIAL IV SCH ×2 (08:11→21:04)
[2018-06-28] MEDS: LACTULOSE SYRUP 20 GM/30 ML UDC PO SCH (08:11)
[2018-06-28] MEDS: SPIRONOLACTONE 25 MG TAB PO SCH (08:11)
[2018-06-28] MEDS: FUROSEMIDE INJ 10 MG/ML 2 ML VIAL IV SCH (08:12)
--- NOTE | 2018-06-28 19:15 | NUR ---
Received patient awake on bed, on support at 2L via NC. No complaints of pain at this time. Call light within reached, advised to call for assistance. Will continue to monitor
--- NOTE | 2018-06-28 23:06 | NUR ---
Home O2 eval done
[2018-06-29] VITALS: BP 120/57
[2018-06-29] MEDS: ALBUTEROL/IPRATROPIUM 3 ML NEB NEB SCH ×4 (01:20→20:30)
[2018-06-29 04:00] VITALS: BP 119/53
--- NOTE | 2018-06-29 07:08 | NUR ---
pt asleep resp even and unlabored at this time no distress noted, pt easily aroused , no c/o pain when asked. call light in reach.
[2018-06-29] MEDS: PANTOPRAZOLE SOD 40 MG TABEC PO SCH (07:30)
[2018-06-29 08:30] VITALS: BP 95/45
[2018-06-29] MEDS: FOLIC ACID 1 MG TAB PO SCH (09:00)
[2018-06-29] MEDS: MUPIROCIN 2% OINT 22 GM TUBE TOP SCH ×3 (09:00→21:23)
[2018-06-29] MEDS: FUROSEMIDE INJ 10 MG/ML 4 ML VIAL IV SCH ×2 (09:00→21:19)
[2018-06-29] MEDS: LACTULOSE SYRUP 20 GM/30 ML UDC PO SCH (09:00)
[2018-06-29] MEDS: SPIRONOLACTONE 25 MG TAB PO SCH (09:00)
[2018-06-29 09:58] LABS: BASOPHILS # (AUTO) 0.1 (0.0-0.1); BASOPHILS % 1.2 % (0.0-1.0); EOSINOPHILS # (AUTO) 0.4 (0.0-0.4); EOSINOPHILS % 5.7 % (0.0-6.0); HEMOGLOBIN 8.5 g/dL (12.0-16.0); LYMPHOCYTES # (AUTO) 2.5 (1.0-3.2); LYMPHOCYTES % 32.7 % (18.0-39.1); MEAN CORPUSCULAR HEMOGLOBIN 36.3 pg (28-32); MEAN CORPUSCULAR HGB CONC 32.7 g/dL (31-35); MEAN CORPUSCULAR VOLUME 111.1 fL (81-99); MONOCYTES # (AUTO) 0.9 (0.2-0.8); MONOCYTES % 11.8 % (4.4-11.3); NEUTROPHILS # (AUTO) 3.6 (2.1-6.9); NEUTROPHILS % 47.7 % (38.7-80.0); PLATELET COUNT 58 x10e3/uL (140-360); RED BLOOD COUNT 2.34 x10e6/uL (3.6-5.1); RED CELL DISTRIBUTION WIDTH 21.1 % (11.7-14.4)
[2018-06-29 10:13] LABS: ANION GAP 14.3 mmol/L (8-16); BLOOD UREA NITROGEN 11 mg/dL (7-26); BUN/CREATININE RATIO 17 (6-25); CALCIUM 8.6 mg/dL (8.4-10.2); CARBON DIOXIDE 23 mmol/L (22-29); CHLORIDE 97 mmol/L (98-107); CREATININE, SERUM 0.66 mg/dL (0.57-1.11); EST GLOMERULAR FILTRATION RATE > 60 ML/MIN (60-); GLUCOSE 139 mg/dL (74-118); POTASSIUM 3.3 mmol/L (3.5-5.1); SODIUM 131 mmol/L (136-145)
[2018-06-29 11:52] VITALS: BP 115/57
[2018-06-29] MEDS: POTASSIUM CHLORIDE 20 MEQ TAB CR PO SCH ×2 (12:00→18:23)
[2018-06-29 12:42] LABS: ABG PH 7.48 (7.31-7.41)
[2018-06-29 12:43] LABS: ABG HCO3 29 mmol/L (23-28); ABG PCO2 38 mmHg (41-51); ABG PO2 68 mmHg (80-105)
--- NOTE | 2018-06-29 12:57 | NUR ---
Counter Supply Worker to bedside to discuss plan of care with patient/family. CM/SW role and care transitions discussed. Anticipated discharge plan discussed along with duration of care. CM/SW discussed patients right to make decisions in care. CM/SW work hours given. Patient lives: with her son and daughter Admit/Transfer: thru ED, from home POA/Emergency contact: katia Miller [phone] Current/Previous Home Health: none PCP/Follow-up Care: Dr. Roselyn Ayers Current/Previous DME: none; pt states she is independent, still drives Other Services: none Employment Status: retired Areas of Concerns: none Referral Needs: none Education Needs: none IMM/LEMA given and signed (if applicable): IMM; pt verbalized understanding. Signed copy placed in chart. copy to pt. Goal for discharge: home; son will provide transportation CM/SW left business card at the bedside with contact information. Name and number was also written on the patients whiteboard. Patient verbalized understanding of discussion. CM will follow-up with ongoing discharge and transition of care needs.
--- NOTE | 2018-06-29 15:13 | NUR ---
Pt does not qualify for home o2. 97% on room air and 93% on exertion. Received order for sleep study. CM called and left VM for sleep lab. Will follow up.
[2018-06-29 16:45] VITALS: BP 94/42
--- NOTE | 2018-06-29 17:21 | NUR ---
AMPOULE FILLER OF [facility] CALLED AND WANTS CM TO FAX CLINICALS AND DEMOGRAPHICS AND ORDER TO SLEEP LAB FAXED TO [phone] CONFIRMATION REC'D
--- NOTE | 2018-06-29 18:14 | NUR ---
Nutrition Screen Note RD Recommendation for Physician: -Continue cardiac diet as medically appropriate Plan of Care: RD following, monitoring for tolerance and adequacy Nutrition reason for involvement: LOS Primary Diagnose(s): 1. Decompensated nonalcoholic steatohepatitis liver cirrhosis with portal hypertension. 2. Esophageal varices, history of gastrointestinal bleeding, status post transjugular intrahepatic portosystemic shunt. PMH: liver cirrhosis with upper GI bleed, CHF, chronic anemia, HTN Ht: 58in Wt: 207.05lb BMI: 43.3kg/m2 IBW: 90lb RD Assessment: (06/29) Chart reviewed. Labs and meds reviewed. 73yo F, who is admitted for SOB. Thoracentesis was done on 06/24 with 650ml fluids removed. Visited pt in the room. Pt reports good appetite with ~50-75% recorded meal intake. Pt reports of some nausea and meds were given. No vomiting episode noted. LBM 06/28, normal per pt. No complains of chewing or swallowing difficulty. No recent weight loss reported. Pt has been eating about the same FLEET MANAGER/DISPATCH. Will continue to monitor and follow. Current Diet: cardiac diet Malnutrition Evaluation (06/29/18) The patient does not meet criteria for a specified degree of malnutrition at this time. Will re-evaluate at follow-up as appropriate. Nutrition Care Level: low Signed: Aileen Johnson MS, RD, LD
--- NOTE | 2018-06-29 19:06 | NUR ---
Patient visited in room during nursing rounds. Patient alert and oriented x3. No distress or discomfort noted. Patient states she feels fine and ready to go home possibly tomorrow. Call light within reach. Will monitor closely.
[2018-06-29 20:00] VITALS: BP 118/51
[2018-06-30] VITALS (7 sets, daily range): BP systolic 96–136; BP diastolic 44–61
[2018-06-30] MEDS: ALBUTEROL/IPRATROPIUM 3 ML NEB NEB SCH ×4 (01:30→20:00)
[2018-06-30 04:48] LABS: BASOPHILS # (AUTO) 0.1 (0.0-0.1); BASOPHILS % 1.3 % (0.0-1.0); EOSINOPHILS # (AUTO) 0.6 (0.0-0.4); EOSINOPHILS % 6.7 % (0.0-6.0); HEMATOCRIT 27.2 % (34.2-44.1); HEMOGLOBIN 8.7 g/dL (12.0-16.0); LYMPHOCYTES # (AUTO) 3.2 (1.0-3.2); LYMPHOCYTES % 38.5 % (18.0-39.1); MEAN CORPUSCULAR HEMOGLOBIN 35.5 pg (28-32); MONOCYTES # (AUTO) 1.1 (0.2-0.8); MONOCYTES % 12.9 % (4.4-11.3); NEUTROPHILS # (AUTO) 3.3 (2.1-6.9); NEUTROPHILS % 40.2 % (38.7-80.0); PLATELET COUNT 57 x10e3/uL (140-360); RED BLOOD COUNT 2.45 x10e6/uL (3.6-5.1); RED CELL DISTRIBUTION WIDTH 20.6 % (11.7-14.4)
[2018-06-30 05:01] LABS: INR 1.46
[2018-06-30 05:10] LABS: ALANINE AMINOTRANSFERASE 24 IU/L (0-55); ALBUMIN 2.2 g/dL (3.5-5.0); ALBUMIN/GLOBULIN RATIO 0.5 (0.8-2.0); ALKALINE PHOSPHATASE 115 IU/L (40-150); ANION GAP 12.8 mmol/L (8-16); BLOOD UREA NITROGEN 9 mg/dL (7-26); BUN/CREATININE RATIO 13 (6-25); CALCIUM 8.8 mg/dL (8.4-10.2); CARBON DIOXIDE 24 mmol/L (22-29); CHLORIDE 99 mmol/L (98-107); CREATININE, SERUM 0.69 mg/dL (0.57-1.11); EST GLOMERULAR FILTRATION RATE > 60 ML/MIN (60-); GLUCOSE 86 mg/dL (74-118); POTASSIUM 3.8 mmol/L (3.5-5.1); SODIUM 132 mmol/L (136-145)
[2018-06-30] MEDS: PANTOPRAZOLE SOD 40 MG TABEC PO SCH (06:32)
[2018-06-30] MEDS: MUPIROCIN 2% OINT 22 GM TUBE TOP SCH (10:00)
[2018-06-30] MEDS: FOLIC ACID 1 MG TAB PO SCH (10:00)
[2018-06-30] MEDS ORDERED: PHYTONADIONE 10 MG/ML AMP SQ NR (10:00)
[2018-06-30] MEDS: FUROSEMIDE INJ 10 MG/ML 4 ML VIAL IV SCH ×2 (10:00→22:06)
[2018-06-30] MEDS: LACTULOSE SYRUP 20 GM/30 ML UDC PO SCH (10:00)
--- NOTE | 2018-06-30 11:00 | NUR ---
Spoke with Brionna from sleep lab. She stated that they do not do overnight pulse oximetry. AMRITA spoke with Fozia from [facility] who stated they are able to do overnight pulse oximetry. Spoke with pt at bedside. She signed choice letter for [facility]. Copy was given to pt. Pt stated to have them call her son Ian to arrange testing.
[2018-06-30] MEDS: IRON SUCROSE 100 MG in SODIUM CHLORIDE 0.9% 100 ML 100 ML IV SCH (14:06)
--- NOTE | 2018-06-30 14:32 | Consultation ---
DATE OF CONSULTATION: June 30, 2018 OTOLARYNGOLOGY CONSULTATION HISTORY OF PRESENT ILLNESS: I was kindly asked to see this 73-year-old woman for evaluation of epistaxis and hemoptysis. The patient reports intermittent right-sided epistaxis and coughing up blood as long as she can remember and reports that in the last week or 2 it has been more severe than usual. She has had bleeding from the right side of her nose which manifests as blood in her mucus. She also was coughing up blood-tinged mucus. In addition, she reports that since admission she has developed hoarseness. Her history of present illness, past medical history and past surgical history were reviewed in detail on the chart and are pertinent for a slightly elevated INR at 1.46 and hemoglobin of 8.7. PHYSICAL EXAMINATION: The tympanic membranes and external auditory canals are unremarkable. She has a mild S-shaped nasal septal deviation. There are blood clots on the right side of her nose. Oral cavity examination is normal. Posterior pharyngeal wall is unremarkable. She has symmetric elevation of the soft palate. There is no blood noted along the posterior pharyngeal wall. She has no palpable cervical adenopathy. On fiberoptic diagnostic rhinoscopy, the left side is normal. The right side shows normal ostiomeatal complex. There are no masses. She has blood clots and bleeding points on the right anterior nasal septum, which after application of 2% Pontocaine were cauterized with silver nitrate. On fiberoptic laryngoscopy, she had normal vocal cord motion. There were no masses. She had hemorrhage into [place] space on the left vocal cord. There was minimal edema and erythema of the posterior commissure of the larynx. ASSESSMENT: 1. Epistaxis treated with right anterior silver nitrate cautery. 2. Hemoptysis of unclear etiology but may be related to the epistaxis. 3. Mild nasal septal deviation. 4. Mild coagulopathy. 5. Hoarseness secondary to hemorrhage into the left vocal cord. PLAN: 1. Discontinue mupirocin. 2. Bacitracin ointment to each nostril t.i.d. 3. [place] Nasal [place] 2 puffs each side of nose q.4 hours while awake. Thank you very much for this consultation. Sincerely, Job#: [id number] EV
[2018-06-30] MEDS: SALINE 0.65% NAS SOLN 1 SPRAY BTL SCH ×4 (16:00→22:06)
[2018-06-30] MEDS: NEOMYCIN/POLYMYXIN/BACITRACIN 15 GM TUBE TOP SCH ×2 (18:28→22:06)
[2018-06-30] MEDS: SPIRONOLACTONE 25 MG TAB PO SCH (18:29)
--- NOTE | 2018-06-30 23:36 | Progress Note ---
DATE: June 30, 2018 SUBJECTIVE: Patient reports no abdominal pain. Tolerating oral feeds. She did not have any bowel movement today. She has episode of epistaxis, which was treated by ENT surgeon, Dr. Harley. She had right anterior silver nitrate cautery. Epistaxis resolved. REVIEW OF SYSTEMS: GENERAL: No fever or chills. CVS: No chest pain, palpitation. RESPIRATORY: No cough or expectoration. MEDICATIONS: Reviewed, as per MAR. Patient is on lactulose 20 g daily along with other medications. PHYSICAL EXAMINATION: VITAL SIGNS: Temperature 96.8, pulse 96, respiration 20, blood pressure 136/61, oxygen saturation 93% on room air. GENERAL: Not in any acute distress, obese body habitus. HEENT: Oral mucosa is moist. ABDOMEN: Soft, nondistended, obese abdomen, nontender. No digitally appreciable any shifting dullness. Bowel sounds present. LABS: WBC 8.20; hemoglobin 8.7, up from 8.5; hematocrit 27.2; platelet count 57,000. Sodium 132, potassium 3.8, chloride 99, bicarb 24, BUN 9, creatinine 0.69. Total bilirubin 8.9, AST 64, ALT 24, alkaline phosphatase 115. ASSESSMENT: 1. Decompensated nonalcoholic steatohepatitis liver cirrhosis with portal hypertension. 2. Esophageal varices, history of acute gastrointestinal bleeding, status post transjugular intrahepatic portosystemic shunt. PLAN: Continue present medical management. Ensure patient has 1 or 2 bowel movements daily while using lactulose. Hold lactulose for diarrhea. Will add Xifaxan 550 mg twice daily for prevention of any hepatic encephalopathy. Job#: [id number]
[2018-07-01] VITALS: BP 107/46
[2018-07-01] MEDS: ALBUTEROL/IPRATROPIUM 3 ML NEB NEB SCH ×3 (01:00→13:00)
[2018-07-01 04:00] VITALS: BP 110/51
[2018-07-01] MEDS: PANTOPRAZOLE SOD 40 MG TABEC PO SCH ×2 (06:45→07:30)
[2018-07-01] MEDS: SALINE 0.65% NAS SOLN 1 SPRAY BTL SCH ×2 (06:45→09:30)
[2018-07-01 08:00] VITALS: BP 97/44
[2018-07-01] MEDS: NEOMYCIN/POLYMYXIN/BACITRACIN 15 GM TUBE TOP SCH (09:00)
[2018-07-01] MEDS: FUROSEMIDE INJ 10 MG/ML 4 ML VIAL IV SCH (09:00)
[2018-07-01] MEDS: FOLIC ACID 1 MG TAB PO SCH (09:00)
[2018-07-01] MEDS: SPIRONOLACTONE 25 MG TAB PO SCH (09:00)
[2018-07-01] MEDS: LACTULOSE SYRUP 20 GM/30 ML UDC PO SCH (09:00)
--- NOTE | 2018-07-01 10:45 | NUR ---
Spoke with Dr. Howard regarding discharge plan. He plans to discharge pt today after iron infusion. CM spoke to pt and reminded her of Medicare Rights. She stated she was ready to go home. IMM letter signed and placed in chart. Copy to pt. Order for outpatient overnight pulse oximetry and clinicals faxed to [facility] [phone]. Informed them to call pt's son Ian. CM informed Fozia Juarez with [facility] that pt is discharging today.
[2018-07-01 11:40] VITALS: BP 108/50
[2018-07-01] MEDS: IRON SUCROSE 100 MG in SODIUM CHLORIDE 0.9% 100 ML 100 ML IV SCH (11:50)
[2018-07-01] MEDS ORDERED: OMEPRAZOLE40 MG PO (13:42)
[2018-07-01] MEDS ORDERED: LASIX40 MG PO (13:42)
[2018-07-01] MEDS ORDERED: TESSALON PERLE100 MG PO (13:43)
[2018-07-01] MEDS ORDERED: FOLIC ACID1 MG PO (13:43)
[2018-07-01] MEDS ORDERED: ALDACTONE25 MG PO (13:43)
--- NOTE | 2018-07-01 13:44 | Progress Note ---
DATE: July 01, 2018 SUBJECTIVE: Patient reports no abdominal pain. Tolerating oral feeds. She has had 1 bowel movement yesterday. She is likely going to go home today. REVIEW OF SYSTEMS GENERAL: No fever or chills. CVS: No chest pain or palpitation. RESPIRATORY: No cough or expectoration. MEDICATIONS: Reviewed SEP. PHYSICAL EXAMINATION VITAL SIGNS: Temperature 97.9, pulse 85, respirations 18, blood pressure 108/50, oxygen saturation 94% on 2 L of nasal cannula. GENERAL: Not in any acute distress. Oral mucosa is moist. Obese body habitus. Anicteric sclera. ABDOMEN: Soft and nondistended. Abdominal obesity. No digitally appreciable free fluid. No mass or hernia. Positive bowel sounds. EXTREMITIES: Warm. No leg edema. LABS: None today. ASSESSMENT 1. Decompensated nonalcoholic steatohepatitis liver cirrhosis with portal hypertension. 2. Esophageal varices with history of acute gastrointestinal bleeding, status post TIPS. PLAN: Continue present medical management. Lactulose for 1 or 2 bowel movements daily. Patient can be discharged from GI standpoint. She should follow with Dr. Castro continuity of outpatient care of liver cirrhosis. Job#: [id number] SHERLYN
--- NOTE | 2018-07-01 14:20 | NUR ---
PATIENT DISCHARGED AND OFF UNIT VIA WHEELCHAIR ASSISTED BY HOSPITAL STAFF. VERBAL AND WRITTEN INSTRUCTIONS/PRESCRIPTIONS GIVEN. PATIENT AND FAMILY VERBALIZED UNDERSTANDING. IV REMOVED WITH TIP INTACT. PRESSURE DRESSING APPLIED. ALL PERSONAL ITEMS SENT WITH PATIENT.
--- NOTE | 2018-07-01 15:18 | Discharge Summary ---
PRIMARY CARE PHYSICIAN: Dr. Roselyn Ayers CONSULTANTS: Dr. Chapito Pereira, Dr. Yassine Harley, Dr. Pool Wu, and Dr. Ayaan Castro. FINAL DIAGNOSES 1. Srizd-fe-[id number] blood loss anemia secondary to liver cirrhosis secondary to both alcohol and nonalcoholic steatohepatitis. 2. Multiple blood transfusions for gross anemia with symptoms. 3. Bilateral pleural effusion with [id number] diastolic dysfunction congestive heart failure. 4. Severe aortic stenosis associated with exertional shortness breath. 5. Pancytopenia with thrombocytopenia. 6. Nasal bleed, status post cauterization by Dr. Yassine Harley. 7. Morbidly obese. 8. Abdominal ascites, liver cirrhosis and anasarca, status post TIPS procedures in [facility]. SUMMARY: This is a 73-year-old female recently diagnosed with severe liver cirrhosis associated with acute blood loss anemia secondary to esophageal varices. Patient is status post banding and subsequently received TIPS procedure. She was also diagnosed with severe aortic stenosis. She refused any surgical intervention. The patient does have diastolic dysfunction congestive heart failure. She came in with acute shortness breath due to multiple factorials, including bilateral pleural effusion, severe aortic stenosis, anasarca, chronic anemia with blood loss due to her liver cirrhosis, and esophageal varices. Exhausted all treatment with respect to the liver cirrhosis and esophageal varices with chronic bleed. More importantly, she also exacerbated with nasal bleed. Dr. Yassine Harley saw the patient, and she subsequently underwent a cauterization of the right anterior septal bleed. Patient is doing much better now. She did receive iron infusion. The patient is otherwise stable. Hemoglobin and hematocrit today is 8.7 and 27.2. Platelets are 57,000. WBC is 8.4. BUN is 9 and creatinine 0.7. Glucose is 86 with sodium of 132 and potassium 3.8. Patient is stable. She is ambulatory. She seems to be comfortable at this time. She and her family are very aware of her situation at this time. Her chronic medical problems need to be chronically medically managed. The patient will go home today. Medication reconciliation is done. The patient to follow up with Dr. Ayers for close monitoring. The patient may or may not need blood transfusion from time to time. She did receive iron infusion and advised iron supplement. Patient is stable and discharged home today. Please review the medication list on discharge. Job#: [id number] RI
== END 2018-07-01 14:20 | disposition home or self-care (01) | DRG 292 ==
LOC: ER 11:30 → INTOOBSV 21:01 → ERHOLD 21:01 → OBSVTOIN 06-23 09:30 → MED/SURG2 06-23 15:15
PROVIDERS: ADMIT Internal Medicine; ATTEND Internal Medicine
PROC: 0W993ZX Drainage of Right Pleural Cavity, Percutaneous Approach, Diagnostic (ICD-10-PCS; 2018-06-24)
PROC: 30233N1 Transfusion of Nonautologous Red Blood Cells into Peripheral Vein, Percutaneous Approach (ICD-10-PCS; principal; 2018-06-25)
PROC: 093K8ZZ Control Bleeding in Nasal Mucosa and Soft Tissue, Via Natural or Artificial Opening Endoscopic (ICD-10-PCS; 2018-06-30)
DX: I11.0 Hypertensive heart disease with heart failure (principal); I85.10 Secondary esophageal varices without bleeding; D68.4 Acquired coagulation factor deficiency; K76.6 Portal hypertension; Z68.41 Body mass index [BMI] 40.0-44.9, adult; D62 Acute posthemorrhagic anemia; D61.818 Other pancytopenia; I50.33 Acute on chronic diastolic (congestive) heart failure; J34.2 Deviated nasal septum; R49.0 Dysphonia; K31.89 Other diseases of stomach and duodenum; Z87.891 Personal history of nicotine dependence; I25.10 Atherosclerotic heart disease of native coronary artery without angina pectoris; K70.31 Alcoholic cirrhosis of liver with ascites; E66.01 Morbid (severe) obesity due to excess calories; J44.9 Chronic obstructive pulmonary disease, unspecified; R04.0 Epistaxis; I35.0 Nonrheumatic aortic (valve) stenosis; Z79.899 Other long term (current) drug therapy
CPT/HCPCS: 32555; 36415; 36600; 71045; 71260; 74470; 80048; 80053; 80061; 82550; 82553; 82607; 82746; 82805; 82945; 83090; 83540; 83615; 83735; 83880; 83921; 84157; 84443; 84466; 84484; 85025; 85610; 85730; 86850; 86870; 86880; 86900; 86905; 86920; 86922; 87070; 87116; 87205; 87206; 88112; 88305; 89051; 93005; 93306; 94640; 97139; 99001; 99284; G0378; J1756; J1940; J3430; J7050; P9016; Q9967

== ENCOUNTER 2019-06-06 13:35 | Inpatient (IN) | payer MEDICARE ==
[~2019-06-06] VITALS: Ht 147.3 cm; Wt 102.5 kg
[~2019-06-06 13:35] MED LIST: ALDACTONE25 MG PO; ASPIRIN CHEW81 MG PO; ATORVASTATIN CA20 MG PO; FOLIC ACID1 MG PO; LACTULOSE20 GM/30 M PO; LASIX20 MG PO; LASIX40 MG PO; MUPIROCIN22 GM TOP; OMEPRAZOLE40 MG PO; ROBITUSSIN-COU237 ML PO; SPIRONOLACTONE25 MG PO; TESSALON PERLE100 MG PO; ULTRAM 50MG50 MG PO
[2019-06-06] MEDS ORDERED: ASPIRIN 81 MG CHEW TAB PO ONE ×2 (14:00→15:45)
--- NOTE | 2019-06-06 14:37 | Diagnostic Imaging Report ---
EXAM: CHEST SINGLE (PORTABLE) DATE: 06/06/2019 1:59 PM INDICATION: Shortness of breath COMPARISON: 06/24/2018 IMPRESSION: The trachea is midline. There are bibasilar opacities suggestive of atelectasis. A developing airspace process cannot be entirely excluded. There is blunting of the left costophrenic angle and a trace effusion is possible. The cardiac silhouette appears prominent, similar prior examinations. Mediastinal contours are unremarkable. Atherosclerotic calcifications noted within the thoracic aorta. No acute osseous abnormalities identified. Signed by: Dr. Tye Zuñiga MD on 06/06/2019 2:34 PM
[2019-06-06 14:43] LABS: BASOPHILS # (AUTO) 0.1 (0.0-0.1); BASOPHILS % 0.8 % (0.0-1.0); EOSINOPHILS # (AUTO) 0.3 (0.0-0.4); EOSINOPHILS % 2.5 % (0.0-6.0); HEMOGLOBIN 10.7 g/dL (12.0-16.0); LYMPHOCYTES # (AUTO) 2.2 (1.0-3.2); LYMPHOCYTES % 20.2 % (18.0-39.1); MEAN CORPUSCULAR HEMOGLOBIN 35.2 pg (28-32); MEAN CORPUSCULAR HGB CONC 32.4 g/dL (31-35); MEAN CORPUSCULAR VOLUME 108.6 fL (81-99); MONOCYTES # (AUTO) 1.2 (0.2-0.8); NEUTROPHILS # (AUTO) 7.2 (2.1-6.9); NEUTROPHILS % 65.3 % (38.7-80.0); PLATELET COUNT 89 x10e3/uL (140-360); RED BLOOD COUNT 3.04 x10e6/uL (3.6-5.1); RED CELL DISTRIBUTION WIDTH 15.3 % (11.7-14.4)
[2019-06-06 14:55] LABS: INR 1.54; PARTIAL THROMBOPLASTIN TIME 42.4 seconds (23.8-35.5); PROTHROMBIN TIME 19.1 seconds (11.9-14.5)
[2019-06-06 15:03] LABS: ALBUMIN 1.8 g/dL (3.5-5.0); ALBUMIN/GLOBULIN RATIO 0.4 (0.8-2.0); ANION GAP 13.1 mmol/L (8-16); CREATININE, SERUM 1.07 mg/dL (0.57-1.11); MAGNESIUM 1.9 MG/DL (1.3-2.1); POTASSIUM 4.1 mmol/L (3.5-5.1)
[2019-06-06 15:10] LABS: CREATINE KINASE MB 7.9 ng/mL (0-5.0)
[2019-06-06] MEDS ORDERED: ALBUMIN 25% 25GM 100ML 100 ML IV ONE ×2 (15:45→18:00)
[2019-06-06] MEDS ORDERED: ALBUMIN 25% 25GM 100ML 0.25 GM/ML BTL IV ONE ×2 (15:45→18:00)
[2019-06-06] MEDS ORDERED: ONDANSETRON HCL INJ 2MG/ML 2ML 2 MG/ML VIAL IV PRN (15:45)
[2019-06-06] MEDS ORDERED: SODIUM CHLORIDE 0.9% 1000ML 1,000 ML IV ONE (15:45)
[2019-06-06] MEDS: FAMOTIDINE 20 MG/2 ML VIAL IV SCH (16:30)
--- NOTE | 2019-06-06 19:11 | NUR ---
Note layla in EDM - 06/06/19 at 1914 by JUAN PABLO Report and care hand off given to [facility]. Pt lying comfortably in bed. RR even and unlabored. NAD noted. Bed locked in lowest position. Call light in reach. Family at bedside. Will continue to monitor.
--- NOTE | 2019-06-06 21:30 | NUR ---
SBAR report received via telephone from [facility] ED dept, patient pending arrival to the floor
[2019-06-06 21:55] LABS: CREATINE KINASE MB 6.8 ng/mL (0-5.0)
--- NOTE | 2019-06-06 22:00 | NUR ---
Patient arrived to the floor via stretcher, able to self ambulate , gait slow steady, dypnea seen, on RA, SP02@94@ on RA, telemetry box #2 NSR 88, AOX4, able to make needs known, patient states she can not read or write, speaks turkmen well, skin warm dry, wound noted @ ambulicus, draining small amount of fluid, wound bed pink, wound cleansed and dry dressing placed, oriented to staff, room and policies, current weight taken, vitals, WNL, reports no pain currently, only lower back pain when she ambulates, denies SOB, denies CHest pain, call light within reach, bed alarm in place, bed in lowest position, will continue to monitor on my shift
[2019-06-06 22:11] VITALS: BP 117/56
[2019-06-06 22:30] VITALS: BP 117/56
[2019-06-07] VITALS (8 sets, daily range): BP systolic 102–119; BP diastolic 51–59
[2019-06-07] MEDS: FAMOTIDINE 20 MG/2 ML VIAL IV SCH (05:50)
[2019-06-07 06:09] LABS: BASOPHILS # (AUTO) 0.1 (0.0-0.1); EOSINOPHILS # (AUTO) 0.4 (0.0-0.4); EOSINOPHILS % 4.3 % (0.0-6.0); HEMATOCRIT 27.6 % (34.2-44.1); HEMOGLOBIN 9.3 g/dL (12.0-16.0); LYMPHOCYTES # (AUTO) 2.4 (1.0-3.2); MEAN CORPUSCULAR HEMOGLOBIN 36.2 pg (28-32); MEAN CORPUSCULAR HGB CONC 33.7 g/dL (31-35); MEAN CORPUSCULAR VOLUME 107.4 fL (81-99); MONOCYTES # (AUTO) 1.2 (0.2-0.8); NEUTROPHILS # (AUTO) 5.6 (2.1-6.9); NEUTROPHILS % 57.4 % (38.7-80.0); PLATELET COUNT 85 x10e3/uL (140-360); RED BLOOD COUNT 2.57 x10e6/uL (3.6-5.1)
[2019-06-07 06:32] LABS: ALBUMIN 2.3 g/dL (3.5-5.0); ALBUMIN/GLOBULIN RATIO 0.6 (0.8-2.0); ANION GAP 10.8 mmol/L (8-16); CHOL/HDL RATIO 11.5 (3.0-3.6); CREATININE, SERUM 0.94 mg/dL (0.57-1.11); POTASSIUM 3.8 mmol/L (3.5-5.1)
[2019-06-07 06:49] LABS: CREATINE KINASE MB 7.9 ng/mL (0-5.0)
--- NOTE | 2019-06-07 07:09 | NUR ---
SBAR report given to oncoming shift RN at bedside, patient seen resting comfortably in bed, no distress noted, oxygen therapy 2L/NC, denies SOB, chest pain at this time, up with assistance to bedside commode, call light within reach, instructed to call dont fall
[2019-06-07] MEDS ORDERED: NON-FORMULARY MEDICATION (Benzonatate (Tessalon Perle) 100 MG) PO PRN (09:30)
[2019-06-07] MEDS ORDERED: [UNRECOGNIZED DRUG - OTHER] PO PRN (09:30)
[2019-06-07] MEDS ORDERED: DEXTROMETHORPHAN PO PRN (09:30)
[2019-06-07] MEDS ORDERED: GUAIFENESIN PO PRN (09:30)
[2019-06-07] MEDS ORDERED: TRAMADOL HCL 50 MG TAB PO PRN (09:30)
[2019-06-07] MEDS ORDERED: BENZONATATE 100 MG CAP PO PRN (10:00)
[2019-06-07] MEDS ORDERED: SODIUM CHLORIDE 0.9% 1000ML 1,000 ML ONE (11:03)
[2019-06-07] MEDS: PANTOPRAZOLE SOD 40 MG TABEC PO SCH (11:05)
[2019-06-07] MEDS: FOLIC ACID 1 MG TAB PO SCH (11:05)
--- NOTE | 2019-06-07 11:19 | NUR ---
Patient resting in bed, not in any distress, denies any pain, call light in reach, Dr Howard had rounds
[2019-06-07 15:17] LABS: CREATINE KINASE MB 10.8 ng/mL (0-5.0)
--- NOTE | 2019-06-07 15:34 | History and Physical ---
PCP: Dr. Roselyn Ayers. CHIEF COMPLAINT: Generalized abdominal pain and muscle rhabdomyolysis. HISTORY OF PRESENT ILLNESS: The patient is a 74-year-old female with advanced liver cirrhosis. The patient also has osteoarthritis. She has a history of TIPS and she was stable. Apparently, she has osteoarthritis. She was seen in Pain Management and the patient was going to have injection to her knee. She was using lidocaine cream and that was doing okay. However, the patient was giving alendronate and she took one dose of alendronate and after that she felt significant pain all over her body including muscular ache and pain. The patient came to the emergency room for evaluation because of the pain. The patient also has epigastric pain with severe reflux as well. The patient has history of liver cirrhosis with esophageal varices and she had banding in the past. When she came to the emergency room, her CK level was 1804. She did receive some IV fluid rehydration. The patient is otherwise stable. She has low sodium level of 131. Her hemoglobin and hematocrit are stable given her status. The patient is comfortable at this time. She is doing a little bit better. PAST MEDICAL HISTORY: Liver cirrhosis with history of splenic artery embolization and coiling. She had TIPS procedure. She also has esophageal varices with previous banding. She has hypertension and osteoarthritis. PAST SURGICAL HISTORY: 1. Tips. 2. Multiple endoscopies. SOCIAL HISTORY: The patient does not smoke or use alcohol. No regular drug. ALLERGIES: TO INFLUENZA VIRUS, PNEUMONIA VACCINE. HOME MEDICATIONS: List reviewed. REVIEW OF SYSTEMS: The patient is doing much better. Myalgia has improved. PHYSICAL EXAMINATION: VITAL SIGNS: Temperature is 98, blood pressure 104/52, pulse rate 84, and respirations 18. GENERAL: The patient is not in acute distress. She is awake. HEENT: Normocephalic and atraumatic. Anicteric. NECK: Supple grossly. PULMONARY: Clear. CARDIOVASCULAR: Regular rate and rhythm. ABDOMEN: Soft and obese. EXTREMITIES: 1+ edema. NEUROLOGIC: No focal deficit. LABORATORY DATA: WBC is 11, hemoglobin 10.7, hematocrit 33, and platelets is 89. Chemistry; sodium is 131, potassium 4, chloride 101, bicarb is 21, BUN is 15, creatinine 1.0, and glucose is 97. CK level is 1804, now down to 1418. Liver enzyme is stable at 83 and 38 respectively AST, ALT. Alkaline phosphate is 165. Coagulation, INR is 1.5. Chest x-ray otherwise unremarkable with some effusion at the bases atelectasis. IMPRESSION: 1. Rhabdomyolysis associated with myalgias secondary to drug side effect of alendronate, most likely. 2. Baseline liver cirrhosis advanced with previous TIPS and esophageal varices with banding. 3. Multiple baseline problems. PLAN: Continue to monitor the patient closely for today. Should be able to go home tomorrow. Obtain CK level. Resume home medication. No IV fluids. We will monitor the patient closely at this time. MD FARHAD Coulter/JAE /[id number]
[2019-06-07] MEDS ORDERED: ONDANSETRON HCL 4 MG ORAL DISINTEGRATING TAB PO PRN (16:15)
[2019-06-07] MEDS: MUPIROCIN 2% OINT 22 GM TUBE TOP SCH ×2 (18:00→21:00)
[2019-06-07] MEDS: SPIRONOLACTONE 25 MG TAB PO SCH (18:00)
[2019-06-07] MEDS: FUROSEMIDE 40 MG TAB PO SCH (18:00)
--- NOTE | 2019-06-07 19:15 | NUR ---
patient received awake, alert, lying quietly in bed. no c/o pain noted. respirations even and unlabored. 02/2l/nc in use. pm assessment complete. patient instructed to call for assistance when needed.
[2019-06-08] VITALS (9 sets, daily range): BP systolic 100–137; BP diastolic 49–63
[2019-06-08 06:25] LABS: ANION GAP 10.6 mmol/L (8-16); CALCIUM 8.2 mg/dL (8.4-10.2); CREATININE, SERUM 0.93 mg/dL (0.57-1.11); POTASSIUM 3.6 mmol/L (3.5-5.1)
--- NOTE | 2019-06-08 06:52 | NUR ---
BEDSIDE SHIFT REPORT RECEIVED FROM OFF GOING NURSE. PATIENT IS RESTING IN BED. NO ACUTE DISTRESS NOTED. CALL LIGHT WITHIN REACH. BED IN THE LOWEST POSITION.
[2019-06-08] MEDS: MUPIROCIN 2% OINT 22 GM TUBE TOP SCH ×3 (08:51→21:00)
[2019-06-08] MEDS: FOLIC ACID 1 MG TAB PO SCH (08:51)
[2019-06-08] MEDS: FUROSEMIDE 40 MG TAB PO SCH ×2 (08:51→17:12)
[2019-06-08] MEDS: PANTOPRAZOLE SOD 40 MG TABEC PO SCH (08:51)
[2019-06-08] MEDS: SPIRONOLACTONE 25 MG TAB PO SCH ×2 (08:51→17:12)
[2019-06-08] MEDS: LACTULOSE SYRUP 20 GM/30 ML UDC PO SCH (08:51)
[2019-06-08] MEDS ORDERED: SPIRONOLACTONE 25 MG TAB PO SCH (09:00)
[2019-06-08] MEDS: SODIUM CHLORIDE 0.9% 1000ML 1,000 ML IV SCH (10:21)
--- NOTE | 2019-06-08 15:46 | NUR ---
CM ATTEMPTED TO GET IMM SIGNED FOR CHANGE IN STATUS AND DPA. PT WAS ASLEEP. WILL F/U TOMORROW.
--- NOTE | 2019-06-08 19:27 | NUR ---
BEDSIDE SHIFT REPORT GIVEN TO ONCOMING NURSE. PATIENT IS IN STABLE CONDITION, NO ACUTE DISTRESS NOTED. CALL LIGHT WITHIN REACH. BED IN THE LOWEST POSITION.
--- NOTE | 2019-06-08 19:37 | NUR ---
Received change of shift report from AM nurse. Walking rounds completed.
--- NOTE | 2019-06-08 21:00 | NUR ---
Patient refused dressing change at this time.
[2019-06-09] VITALS (8 sets, daily range): BP systolic 104–112; BP diastolic 51–97
--- NOTE | 2019-06-09 07:22 | NUR ---
Dressing change done. Patient tolerated well. Pin sized wound with serosangerous drainage noted.
[2019-06-09 07:40] LABS: ALBUMIN 2.2 g/dL (3.5-5.0); ALBUMIN/GLOBULIN RATIO 0.6 (0.8-2.0); ANION GAP 9.6 mmol/L (8-16); CALCIUM 8.1 mg/dL (8.4-10.2); CREATININE, SERUM 0.97 mg/dL (0.57-1.11); POTASSIUM 3.6 mmol/L (3.5-5.1)
[2019-06-09] MEDS: SPIRONOLACTONE 25 MG TAB PO SCH ×2 (09:20→17:00)
[2019-06-09] MEDS: FOLIC ACID 1 MG TAB PO SCH (09:20)
[2019-06-09] MEDS: LACTULOSE SYRUP 20 GM/30 ML UDC PO SCH (09:20)
[2019-06-09] MEDS: PANTOPRAZOLE SOD 40 MG TABEC PO SCH (09:20)
[2019-06-09] MEDS: FUROSEMIDE 40 MG TAB PO SCH ×2 (09:21→17:00)
[2019-06-09] MEDS: MUPIROCIN 2% OINT 22 GM TUBE TOP SCH ×3 (09:23→23:55)
[2019-06-09] MEDS: GUAIFENESIN/DEXTROMETHORPHAN LIQD 5 ML UDC PO PRN ×2 (09:35→23:57)
[2019-06-09] MEDS: SODIUM CHLORIDE 0.9% 1000ML 1,000 ML IV SCH ×3 (10:51→20:54)
[2019-06-09] MEDS ORDERED: FUROSEMIDE INJ 10 MG/ML 4 ML VIAL IV NR (11:30)
--- NOTE | 2019-06-09 14:09 | Diagnostic Imaging Report ---
CT of the chest, abdomen, and pelvis History: Shortness of breath, cirrhosis Comparison: CT of the chest 06/22/2018. Technique: Multidetector CT scanning of the chest, abdomen and pelvis was performed from the level of the thoracic inlet to the inferior pubic ramus without contrast. DOSE REDUCTION: The examination was performed according to departmental dose-optimization program which includes automated exposure control, adjustment of the mA and/or kV according to patient size and/or use of iterative reconstruction technique. Discussion: CHEST FINDINGS: The visualized portions of the thyroid gland are within normal limits. There is no axillary, mediastinal, or hilar lymphadenopathy. The heart is mildly enlarged. There is no pericardial effusion. The thoracic aorta is of normal course and caliber. The trachea and central airways are clear. Small bilateral pleural effusions are present, right greater than left. There is associated atelectasis of the bilateral lower lobes. Interlobular septal thickening is present. No focal consolidation is identified. ABDOMEN AND PELVIS FINDINGS: The liver is cirrhotic in morphology. A TIPS stent is in place lack of IV contrast limits evaluation for liver masses. The gallbladder is present nondistended. Small calcified gallstones are identified. There is no intrahepatic or extrahepatic biliary dilatation. The spleen is within normal limits. The bilateral adrenal glands are unremarkable. The pancreas is homogeneous in attenuation. There is no pancreatic ductal dilatation. The kidneys are normal in size. No nephroureterolithiasis is identified. There is no hydroureteronephrosis. The stomach, small, and large bowel are nondistended. There is no evidence of obstruction. Scattered colonic diverticula without evidence of acute diverticulitis. There is no free intraperitoneal air or ascites. The abdominal aorta is of normal course and caliber and demonstrates moderate atherosclerotic calcifications. The uterus and bilateral adnexa are within normal limits. The urinary bladder is unremarkable. Soft tissue anasarca is present. Multilevel degenerative changes of the thoracolumbar spine. No acute osseous abnormalities. IMPRESSION: 1. Small bilateral pleural effusions, right greater than left. 2. Mild cardiomegaly and pulmonary edema. 3. Cirrhosis. Status post TIPS. 4. Colonic diverticulosis without evidence of acute diverticulitis. 5. Soft tissue anasarca. Signed by: Jona Story MD on 06/09/2019 2:06 PM
--- NOTE | 2019-06-09 19:21 | NUR ---
SBAR report received rafi Brandt RN, patient seen awake alert, family at bedside, no c/o pain or discomfort at this time, seen sitting in bed, not on oxygen therapy, nasal cannula sitting in bed, patient encouraged to place back on if she feels SOB, patient understands verbalizes education with teachback, call light within reach, bed in lowest position, instructed to call don't fall, bed alarm activated
--- NOTE | 2019-06-09 23:00 | NUR ---
dressing change to wound on umbilicus performed, small amount of dry blood seen on dressing, wound cleansed, pat dry, ordered medication applied to area using aseptic technique, new dressing applied, time and dated, patient tolerated well
[2019-06-10] VITALS (9 sets, daily range): BP systolic 93–120; BP diastolic 46–62
[2019-06-10] MEDS: SODIUM CHLORIDE 0.9% 1000ML 1,000 ML IV SCH ×2 (01:20→19:35)
[2019-06-10] MEDS: PANTOPRAZOLE SOD 40 MG TABEC PO SCH (05:34)
[2019-06-10 06:14] LABS: BASOPHILS # (AUTO) 0.1 (0.0-0.1); EOSINOPHILS # (AUTO) 0.3 (0.0-0.4); EOSINOPHILS % 3.7 % (0.0-6.0); HEMATOCRIT 28.2 % (34.2-44.1); HEMOGLOBIN 9.4 g/dL (12.0-16.0); LYMPHOCYTES # (AUTO) 2.6 (1.0-3.2); LYMPHOCYTES % 28.7 % (18.0-39.1); MEAN CORPUSCULAR HEMOGLOBIN 35.7 pg (28-32); MEAN CORPUSCULAR HGB CONC 33.3 g/dL (31-35); MEAN CORPUSCULAR VOLUME 107.2 fL (81-99); MONOCYTES # (AUTO) 1.1 (0.2-0.8); MONOCYTES % 12.7 % (4.4-11.3); NEUTROPHILS # (AUTO) 4.8 (2.1-6.9); NEUTROPHILS % 53.7 % (38.7-80.0); PLATELET COUNT 87 x10e3/uL (140-360); RED BLOOD COUNT 2.63 x10e6/uL (3.6-5.1); RED CELL DISTRIBUTION WIDTH 15.2 % (11.7-14.4)
[2019-06-10 06:32] LABS: ALANINE AMINOTRANSFERASE 43 IU/L (0-55); ALBUMIN 2.1 g/dL (3.5-5.0); ALBUMIN/GLOBULIN RATIO 0.6 (0.8-2.0); ALKALINE PHOSPHATASE 163 IU/L (40-150); ANION GAP 12.5 mmol/L (8-16); BLOOD UREA NITROGEN 15 mg/dL (7-26); BUN/CREATININE RATIO 18 (6-25); CALCIUM 8.2 mg/dL (8.4-10.2); CARBON DIOXIDE 26 mmol/L (22-29); CHLORIDE 99 mmol/L (98-107); CREATINE KINASE 2013 IU/L (29-168); CREATININE, SERUM 0.83 mg/dL (0.57-1.11); EST GLOMERULAR FILTRATION RATE > 60 ML/MIN (60-); GLUCOSE 86 mg/dL (74-118); POTASSIUM 3.5 mmol/L (3.5-5.1); SODIUM 134 mmol/L (136-145)
--- NOTE | 2019-06-10 06:37 | NUR ---
shift report given to oncoming day shift RN, patient VSS remain afebrile, hypotensive at this time SBP 93/46, IV fluids infusing, placed in Trendelenburg position for intervention, blood pressure will be retaken prior to end of shift, if no change will notify MD of blood pressure for orders
--- NOTE | 2019-06-10 07:04 | NUR ---
blood pressure reassess prior to end of shift, patient SBP currently 110/51, endorsed to Karly RN, call light within reach, patient noted to have bloody sputum at end of shift, pt stated "It always happens", RN karly made aware
[2019-06-10] MEDS: SPIRONOLACTONE 25 MG TAB PO SCH ×2 (08:22→16:34)
[2019-06-10] MEDS: FOLIC ACID 1 MG TAB PO SCH (08:23)
[2019-06-10] MEDS: LACTULOSE SYRUP 20 GM/30 ML UDC PO SCH (08:23)
[2019-06-10] MEDS: FUROSEMIDE 40 MG TAB PO SCH ×2 (08:23→16:34)
[2019-06-10] MEDS: MUPIROCIN 2% OINT 22 GM TUBE TOP SCH ×2 (09:00→15:00)
--- NOTE | 2019-06-10 15:05 | NUR ---
pt refusing bc she did not sleep well and is tired but does get up on her own to walk in the room to the rr> f/u on wednesday Addendum: 06/10/19 at 1506 by He Arzola PTA Amended: Links added.
--- NOTE | 2019-06-10 18:58 | NUR ---
patient received into my care, SBAR report received from Karly RN, patient seen sleeping resting comfortably, no distress noted, skin warm dry, no family at bedside, denies pain discomfort at this time, educated on safety, call light within reach, refuses bed alarm at this time
--- NOTE | 2019-06-10 21:30 | NUR ---
dressing change to wound on umbilicus performed, wound cleansed, pat dry, ordered medication applied to area using aseptic technique, new dressing applied, time and dated, patient tolerated well
[2019-06-11] VITALS: BP 97/49
[2019-06-11] MEDS: MUPIROCIN 2% OINT 22 GM TUBE TOP SCH ×2 (00:35→08:43)
[2019-06-11 04:00] VITALS: BP 126/60
[2019-06-11 06:42] LABS: ANION GAP 13.7 mmol/L (8-16); BLOOD UREA NITROGEN 15 mg/dL (7-26); BUN/CREATININE RATIO 18 (6-25); CALCIUM 8.4 mg/dL (8.4-10.2); CARBON DIOXIDE 23 mmol/L (22-29); CHLORIDE 103 mmol/L (98-107); CREATININE, SERUM 0.82 mg/dL (0.57-1.11); EST GLOMERULAR FILTRATION RATE > 60 ML/MIN (60-); GLUCOSE 90 mg/dL (74-118); POTASSIUM 3.7 mmol/L (3.5-5.1); SODIUM 136 mmol/L (136-145)
[2019-06-11 07:54] VITALS: BP 99/50
[2019-06-11 08:00] VITALS: BP 99/50
[2019-06-11] MEDS: PANTOPRAZOLE SOD 40 MG TABEC PO SCH (08:42)
[2019-06-11] MEDS: FOLIC ACID 1 MG TAB PO SCH (08:43)
[2019-06-11] MEDS: SPIRONOLACTONE 25 MG TAB PO SCH (08:43)
[2019-06-11] MEDS: FUROSEMIDE 40 MG TAB PO SCH (08:43)
[2019-06-11] MEDS: LACTULOSE SYRUP 20 GM/30 ML UDC PO SCH (08:43)
[2019-06-11 12:00] VITALS: BP 105/53
[2019-06-11 16:00] VITALS: BP 109/50
--- NOTE | 2019-06-11 17:51 | NUR ---
Pt discharged home at this time. Pt and family and verbalized understanding of all discharge instructions. 0 s/s of acute distress noted.
--- NOTE | 2019-06-12 08:12 | Discharge Summary ---
PRIMARY CARE PHYSICIAN: Dr. Roselyn Ayers FINAL DIAGNOSES: 1. Rhabdomyolysis secondary to Fosamax/alendronate medication treatment. The patient had myalgias, which resolved. 2. Baseline liver cirrhosis with previous TIPS and ascites abdomen. SUMMARY: This 74-year-old female with rhabdomyolysis, having severe pain, muscular cid, generalized pain associated with increase in creatinine level. The patient is on multiple diuretics for her liver cirrhosis. Therefore, care for rehydration was done. The patient's creatine kinase level was 1804, but it did go up to 2405 and then subsequently went down to 2013 and now today is 1612. The patient did receive some IV fluids rehydration. The patient is doing much better. She is stable. No further pain. Discussed with the patient regarding stopping the alendronate due to the side effect. The patient will resume other medication for her liver cirrhosis. The patient was discharged home today. Follow up with her family physician within a week. MD FARHAD Coulter/JAE /[id number]
== END 2019-06-11 17:51 | disposition home or self-care (01) | DRG 558 ==
LOC: ER 13:35 → ERHOLD 15:35 → MED/SURG3 22:05 → OBSVTOIN 06-08 09:15
PROVIDERS: ADMIT Internal Medicine; ATTEND Internal Medicine
DX: M62.82 Rhabdomyolysis (principal); I85.10 Secondary esophageal varices without bleeding; T45.8X5A Adverse effect of other primarily systemic and hematological agents, initial encounter; K74.60 Unspecified cirrhosis of liver; I10 Essential (primary) hypertension; M19.90 Unspecified osteoarthritis, unspecified site
CPT/HCPCS: 36415; 71045; 71250; 74176; 80048; 80053; 80061; 82550; 82553; 83735; 83880; 84484; 85025; 85610; 85730; 93005; 96360; 96361; 99284; G0378; J1940; J7030; P9047